=== PATIENT | male | born 1965 | race Caucasian/White ===

== ENCOUNTER 2017-05-27 16:36 | Inpatient (IN) ==
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
[2017-05-27 17:41] LABS: Bilirubin,Urine Negative (Negative); Blood,Urine Negative (Negative); Clarity,Urine Clear (Clear); Color,Urine Yellow (Yellow); Glucose,Urine (UA) Normal (Normal); Ketones,Urine Negative (Negative); Leukocyte Esterase,Urine Negative (Negative); Nitrite,Urine Negative (Negative); PH,Urine 6.5 pH Units (5.0-8.0); Protein,Urine Negative (Neg-Trace); Specific Gravity,Urine 1.015 (1.010-1.025); Urobilinogen,Urine Normal (Normal)
[2017-05-27 17:45] LABS: Basophils % 0.2 %; Eosinophils # 0.1 K/mcL (0.0-0.6); Eosinophils % 0.5 %; Hematocrit 42.6 % (37.5-50.1); Hemoglobin 13.9 g/dL (12.9-16.9); Immature Granulocytes % 0.2 % (0-4); Lymphocytes # 1.4 K/mcL (0.6-4.6); Lymphocytes % 14.7 %; Mean Corpuscular HGB Conc 32.6 g/dL (31.6-35.5); Mean Corpuscular Hemoglobin 27.8 pg (28.0-33.3); Mean Corpuscular Volume 85.2 fL (83.0-100.0); Mean Platelet Volume 9.2 fL (9.4-12.4); Monocytes # 0.5 K/mcL (0.0-1.3); Monocytes % 5.1 %; Neutrophils # 7.5 K/mcL (1.6-8.9); Platelet Count 431 K/mcL (140-400); Red Cell Distribution Width 13.2 % (11.5-14.5); Segmented Neutrophils % 79.3 %
[2017-05-27 17:48] LABS: Amphetamine Screen,Urine Negative ng/mL (Cutoff=1000); Barbiturate Screen,Urine Negative ng/mL (Cutoff=200); Benzodiazepines Screen,Urine Positive ng/mL (Cutoff=200); Cannabinoid Screen,Urine Negative ng/mL (Cutoff = 50); Cocaine Screen,Urine Positive ng/mL (Cutoff= 300); Opiate Screen,Urine Negative ng/mL (Cutoff=300); Phencyclidine Screen,Urine Negative ng/mL (Cutoff=25)
[2017-05-27 18:01] LABS: Acetaminophen < 1.0 mcg/mL (10-30); Alanine Aminotransferase 9 Units/L (0-55); Albumin/Globulin Ratio 1.2 (1.1-2.2); Alkaline Phosphatase 111 Units/L (38-126); Aspartate Amino Transferase 18 Units/L (5-34); BUN/Creatinine Ratio 11 (6-26); Bilirubin,Total 0.6 mg/dL (0.2-1.2); Blood Urea Nitrogen 10 mg/dL (8-26); Calcium 9.7 mg/dL (8.6-10.8); Carbon Dioxide 25 mEq/L (19-29); Chloride 109 mEq/L (98-109); Ethanol < 10 mg/dL (0-10); Globulin 3.3 g/dL (2.4-3.5); Glucose 105 mg/dL (70-99); Osmolality,Calculated 295 (280-300); Potassium 4.1 mEq/L (3.5-4.5); Salicylate < 5.0 mg/dL (15-30); Sodium 143 mEq/L (136-145); Total Protein 7.3 g/dL (6.0-8.3); eGFR For African Americans > 60 (> 60); eGFR For Non-African Americans > 60 (> 60)
--- NOTE | 2017-05-27 20:55 | Emergency Department Note ---
START Narrative - START START: [facility] has accepted patient to his service. He has been pink slipped. last time he did cocaine was 3 days ago, and clonopin was filled yesterday and he did not take any extra doses.
[2017-05-27] MEDS ORDERED: hydrOXYzine pamoate 25 MG CAPSULE PO PRN ×2 (21:03→21:07)
[2017-05-27] MEDS ORDERED: *HR* LORazepam 1 MG TABLET PO PRN (21:03)
[2017-05-27] MEDS ORDERED: Mag Hydrox/Al Hydrox/Simeth 30 ML UDC PO PRN (21:03)
[2017-05-27] MEDS ORDERED: MOM Conc 10 ML UD.LIQ PO PRN (21:03)
[2017-05-27] MEDS ORDERED: *HR* LORazepam 2 MG/ML VIAL IM PRN (21:03)
[2017-05-27] MEDS ORDERED: Haloperidol Lactate 5 MG/ML VIAL IM PRN (21:03)
[2017-05-27] MEDS: Haloperidol Lactate 5 MG/ML VIAL IM ONE ×2 (21:23→22:19)
[2017-05-27] MEDS: clonazePAM 1 MG TABLET PO SCH (23:16)
[2017-05-27] MEDS: traZODone 50 MG TABLET PO SCH (23:17)
[2017-05-28] MEDS: Acetaminophen 325 MG TABLET PO PRN ×2 (06:25→21:29)
[2017-05-28] MEDS: clonazePAM 1 MG TABLET PO SCH ×3 (09:34→20:39)
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
[2017-05-28] MEDS ORDERED: Baclofen 10 MG TABLET PO PRN (11:22)
[2017-05-28] MEDS: Gabapentin 100 MG CAPSULE PO SCH ×2 (15:36→20:39)
[2017-05-28] MEDS: traZODone 50 MG TABLET PO SCH (20:38)
[2017-05-28] MEDS: traZODone 50 MG TABLET PO PRN (21:30)
[2017-05-29] MEDS: Gabapentin 100 MG CAPSULE PO SCH ×3 (08:31→20:25)
[2017-05-29] MEDS: clonazePAM 1 MG TABLET PO SCH ×3 (08:31→20:25)
--- NOTE | 2017-05-29 10:18 | Psychiatry Progress Note ---
Date of Encounter: 05/29/17 Time of Encounter: 10:00 Subjective Interval history: Patient seen today , case d/w treatment team . he is complaining about unit cold, did not sleep , mattress not good , food is not good. He is very restless, pacing and anxious, I just want to go home. i do not think this will help me , especially my feet hurting so bad , denies suicidal ideation but is still depress, anxious , sleep not good and medications dose increased. denies side effects. Review of Systems Psychiatric: Reports: depression, anxiety, suicidal ideation, difficulty concentrating, hopelessness, irritability, mood swings Objective: Exam Patient orientation: Yes Person, Yes Time, Yes Place Level of alertness: Alert Patient appearance: Appropriate Behavior: anxious Psychomotor activity: Normal Eye contact: Minimal Contact Mood description: Depressed, Anxious, Irritable Affect description: congruent with mood Speech pattern: Coherent Speech volume: Normal Thought process: Intact Thought content: Yes Guilt Judgment: Limited Insight: Partial Results - Vital Signs Vital Signs: Temp Pulse Resp BP Pulse Ox 98.2 F 69 18 128/79 98 05/29/17 09:00 05/29/17 09:00 05/29/17 09:00 05/29/17 09:00 05/27/17 16:41 Assessment and Plan (1) Suicidal ideation Current visit: Yes Status: Acute Risks, benefits, side effects, alternatives discussed w/pt: Yes Patient agreeable to treatment: Yes (2) Major depression, recurrent Current visit: Yes Status: Acute Risks, benefits, side effects, alternatives discussed w/pt: Yes Patient agreeable to treatment: Yes Qualifiers: Active/Remission status: currently active Major depression episode severity : severe Psychotic features: without psychotic features Qualified Code(s): F33.2 - Major depressive disorder, recurrent severe without psychotic features (3) Opiate dependence Current visit: Yes Status: Chronic Risks, benefits, side effects, alternatives discussed w/pt: Yes Patient agreeable to treatment: Yes Qualifiers: Substance use status: uncomplicated Qualified Code(s): F11.20 - Opioid dependence, uncomplicated (4) Cocaine abuse Current visit: Yes Status: Chronic Risks, benefits, side effects, alternatives discussed w/pt: Yes Patient agreeable to treatment: Yes Consult Discharge Plan - Plan Referrals: Billy Mayo [Outside] - 06/01/17 11:00 am (The above appointment is with Tao Gomez for outpatient mental health and substance abuse counseling services.) Drew Vinson, PAC [Physician Tungsten Tender] - 06/01/17 10:00 am (The above appointment is with Drew Vinson for primary healthcare, medication management, and initiation of Vivitrol treatment process.)
[2017-05-29] MEDS: Acetaminophen 325 MG TABLET PO PRN (15:18)
[2017-05-29] MEDS: traZODone 50 MG TABLET PO PRN (20:26)
[2017-05-29] MEDS: traZODone 50 MG TABLET PO SCH (20:29)
[2017-05-30] MEDS: Acetaminophen 325 MG TABLET PO PRN (02:32)
[2017-05-30] MEDS: Gabapentin 100 MG CAPSULE PO SCH (08:47)
[2017-05-30] MEDS: clonazePAM 1 MG TABLET PO SCH (08:47)
[2017-05-30 09:52] VITALS: BP 116/80
--- NOTE | 2017-05-30 11:24 | Discharge Summary ---
Date of Encounter: 05/30/17 Time of Encounter: 11:00 Diagnosis - Discharge Diagnosis (1) Suicidal ideation Status: Resolved Comments: Patient not in danger to self/other , has support from family. (2) Major depression, recurrent Status: Acute Comments: patient stable and has shown improvement , not in imenent danger to self/others. Qualifiers: Active/Remission status: currently active Major depression episode severity : severe Psychotic features: without psychotic features Qualified Code(s): F33.2 - Major depressive disorder, recurrent severe without psychotic features (3) Opiate dependence Status: Chronic Comments: Patient has appointment with [facility] clinic. Qualifiers: Substance use status: uncomplicated Qualified Code(s): F11.20 - Opioid dependence, uncomplicated (4) Cocaine abuse Status: Chronic Medications - Discharge Medications Prescriptions: DULoxetine [Cymbalta] 30 mg PO DAILY #30 capsule. Gabapentin [Neurontin] 200 mg PO TID #90 capsule Lansoprazole [Prevacid] 30 mg PO DAILY 05/27/17 [History] Naltrexone Microspheres [Vivitrol] 380 mg IM QMONTH 05/27/17 [History] clonazePAM [Klonopin] 1 mg PO TID 05/27/17 [History] traZODone [TraZODone] 50 mg PO HS 05/27/17 [History] DULoxetine [Cymbalta] 30 mg PO DAILY #30 capsule. 05/30/17 [Rx] Gabapentin [Neurontin] 200 mg PO TID #90 capsule 05/30/17 [Rx] 3 Allergy/AdvReac Type Severity Reaction Status Date / Time ciprofloxacin [From Cipro] Allergy Hives Verified 05/27/17 16:39 Penicillins [PCN] Allergy Nausea Verified 05/27/17 16:39 Provider Date of admission: 05/27/17 20:53 Primary care physician: PCP NONE Assessment and Plan - Patient/Caregiver Discharge Instructions Activity: resume usual activities as tolerated Diet: regular diet - Follow up Plan Follow up with: Billy Mayo [Outside] - 06/01/17 11:00 am (The above appointment is with Tao Gomez for outpatient mental health and substance abuse counseling services.) Drew Vinson PAC [Physician Landscape Horticulture Instructor] - 06/01/17 10:00 am (The above appointment is with Drew Vinson for primary healthcare, medication management, and initiation of Vivitrol treatment process.) Functional capacity at discharge: independent ambulation Overall status at discharge: patient is back to baseline Disposition: Home, Self-Care Hospital Course Hospital course: Mr. Alvarez is a 52 year old male who was admitted from ED after he called 911 for suicidal thoughts and had gun in his hand, states he did not wanted to kill self but was upset with recent break up with friend with whom before starting any relationship she did not responded to his calls and blocked him from face book. he lives by himself has supportive family, has chronic back pain and has h/ o abused opiates and now will be followed at [facility] clinic on 06/01. He has been treated in past with medications for depression and anxiety , during course of hospitalization he showed improvement in moods, no suicidal ideation/no homicidal ideation. He will be discharged with his family with follow up appointment. Education given about his substance use and to go to counselling, patient acknowledged. Time spent discussing smoking cessation with patient: 3 to 10 minutes Does patient wish to continue nicotine replacement upon disc: No (states i do not want any patch and i smoke , education given but does not w) - Time Spent with Patient Total time spent providing and/or coordinating discharge services: Less than 30 minutes Quality - Multiple Antipsychotics Patient discharged on 2 or more antipsychotic medications: No Procedures - Procedures Procedures: Medication Management, Crisis Stabilization, Supportive Therapy, Group Therapy, Psychoeducational Therapy Mental Status Exam - Mental Status Exam Patient orientation: Yes Person, Yes Time, Yes Place Level of alertness: Alert Patient appearance: Appropriate Behavior: calm, cooperative Psychomotor activity: Normal Eye contact: Maintains Eye Contact Mood description: Anxious Affect description: congruent with mood Speech pattern: Coherent Speech Volume: Normal Thought process: Intact Thought Content: Yes Intact Judgment: Good Insight: Partial
[2017-05-30] MEDS ORDERED: FLUARIX QUAD 2017-18 36MOS UP/PF 0.5 ML SYRINGE IM ONE (11:51)
== END 2017-05-30 12:20 | disposition home or self-care (01) | DRG 751 ==
LOC: EMEROO 16:36 → 1ANU 20:53
PROVIDERS: ADMIT Psychiatry & Neurology Psychiatry; ATTEND Psychiatry & Neurology Psychiatry

== ENCOUNTER 2018-02-26 17:37 | Inpatient (IN) ==
[2018-02-26 18:17] LABS: Basophils % 0.2 %; Eosinophils # 0.2 K/mcL (0.0-0.6); Eosinophils % 1.6 %; Hematocrit 44.6 % (37.5-50.1); Hemoglobin 15.4 g/dL (12.9-16.9); Immature Granulocytes % 0.2 % (0-4); Lymphocytes # 1.6 K/mcL (0.6-4.6); Lymphocytes % 14.7 %; Mean Corpuscular HGB Conc 34.5 g/dL (31.6-35.5); Mean Corpuscular Hemoglobin 29.7 pg (28.0-33.3); Mean Corpuscular Volume 85.9 fL (83.0-100.0); Mean Platelet Volume 9.6 fL (9.4-12.4); Monocytes # 0.5 K/mcL (0.0-1.3); Monocytes % 4.4 %; Neutrophils # 8.7 K/mcL (1.6-8.9); Platelet Count 336 K/mcL (140-400); Red Blood Count 5.19 M/mcL (4.19-5.50); Red Cell Distribution Width 12.8 % (11.5-14.5); Segmented Neutrophils % 78.9 %
[2018-02-26 18:31] LABS: Bilirubin,Urine Negative (Negative); Blood,Urine Negative (Negative); Clarity,Urine Clear (Clear); Color,Urine Yellow (Yellow); Glucose,Urine (UA) Normal (Normal); Ketones,Urine Negative (Negative); Leukocyte Esterase,Urine Negative (Negative); Nitrite,Urine Negative (Negative); PH,Urine 5.5 pH Units (5.0-8.0); Protein,Urine Negative (Neg-Trace); Specific Gravity,Urine 1.021 (1.010-1.025); Urobilinogen,Urine Normal (Normal)
[2018-02-26 18:39] LABS: Acetaminophen < 10 mcg/mL (10-20); BUN/Creatinine Ratio 8 (6-26); Blood Urea Nitrogen 8 mg/dL (6-20); Calcium 9.3 mg/dL (8.6-10.3); Carbon Dioxide 25 mEq/L (23-29); Chloride 108 mEq/L (98-107); Ethanol < 10 mg/dL (Less than 10); Glucose 95 mg/dL (70-105); Osmolality,Calculated 288 (280-300); Potassium 3.6 mEq/L (3.5-5.1); Salicylate < 2.5 mg/dL (15.0-30.0); Sodium 140 mEq/L (136-145); eGFR For African Americans > 60 (> 60); eGFR For Non-African Americans > 60 (> 60)
[2018-02-26 18:53] LABS: Amphetamine Screen,Urine Negative ng/mL (Cutoff=1000); Barbiturate Screen,Urine Negative ng/mL (Cutoff=200); Benzodiazepines Screen,Urine Negative ng/mL (Cutoff=200); Cannabinoid Screen,Urine Negative ng/mL (Cutoff = 50); Cocaine Screen,Urine Positive ng/mL (Cutoff= 300); Opiate Screen,Urine Negative ng/mL (Cutoff=300); Phencyclidine Screen,Urine Negative ng/mL (Cutoff=25)
[2018-02-26] MEDS ORDERED: Ibuprofen 600 MG TABLET PO ONE (19:24)
--- NOTE | 2018-02-26 19:25 | Emergency Department Note ---
Disposition Clinical Impression: Suicidal ideation Depression Qualifiers: Depression Type: unspecified Qualified Code(s): F32.9 - Major depressive disorder, single episode, unspecified Disposition: Admitted As Inpatient Condition: Fair Time of Disposition: 22:50 Psych HPI - General Chief Complaint: ED Psychiatric Symptoms Stated Complaint: Multiple complaints Time Seen by Provider: 02/26/18 18:04 Source: patient Mode of arrival: ambulatory Limitations: no limitations Nursing Notes Reviewed: Yes Vital Signs Reviewed: Yes - History of Present Illness HPI Narrative: 52-year-old male history of bipolar and anxiety presents emergency department with chronic pain and suicidal ideation. States for the last several years he has been dealing with pain to his back his stomach in his right ankle. He is to take ibuprofen but was told due to his gastritis he should stop. He states recently his doctor told him he does not have gastritis. He has been taking Prevacid for the pain. He is to the point where his pain is uncontrolled and he just does not want to live this way. He does not have a definitive plan for suicide. But he does have a history of suicide attempt. No access to a gun at home. He has been taken his clonazepam for the past year after discontinuing his Xanax. He sees a counselor over the past year but has missed several appointments recently. Denies any hallucinations. Admits to cocaine use. Denies any alcohol or toxic ingestion's. Denies any other complaints at this time. Denies loss of bowel or bladder control. Denies any new injury or trauma. Patient has required psychiatric admission in the past. Pt complaint: suicidal ideation, feels depressed - Related Data Home Medications Medication Instructions Recorded Confirmed Lansoprazole [Prevacid] 30 mg PO DAILY 05/27/17 05/27/17 Naltrexone Microspheres [Vivitrol] 380 mg IM QMONTH 05/27/17 05/27/17 clonazePAM [Klonopin] 1 mg PO TID 05/27/17 05/27/17 traZODone [TraZODone] 50 mg PO HS 05/27/17 05/27/17 Previous Rx's Medication Instructions Recorded DULoxetine [Cymbalta] 30 mg PO DAILY #30 capsule. 05/30/17 Gabapentin [Neurontin] 200 mg PO TID #90 capsule 05/30/17 Allergies Allergy/AdvReac Type Severity Reaction Status Date / Time ciprofloxacin [From Cipro] Allergy Hives Verified 05/27/17 16:39 Penicillins [PCN] Allergy Nausea Verified 05/27/17 16:39 All systems ED: reviewed and negative except as stated. Review of Systems: As Per HPI Constitutional: Denies: fever, chills Cardiovascular: Denies: chest pain Respiratory: Denies: dyspnea Gastrointestinal: Reports: abdominal pain, constipation. Denies: nausea, vomiting Musculoskeletal: Reports: back pain Neurological: Denies: headache, weakness, numbness Past Medical History - Past Medical History Attestation: Yes The following information was validated with the patient. Source: patient Medical history: Reports: no medical history, arthritis, GERD Surgical history: Reports: non-contributory Psychiatric history: Reports: anxiety, depression - Social History Smoking Status: Current every day smoker Smokeless Tobacco Status: No Alcohol use: Reports: rarely Drug use: Reports: cocaine, opiates, methamphetamine, IV Drug Use, prescription drug abuse Physical Exam - General Limitations: no limitations General appearance: alert, in no apparent distress - Head Head exam: atraumatic, normocephalic, normal inspection - Eye Eye exam: Present: normal appearance, PERRL, EOMI - ENT ENT exam: normal exam, normal oropharynx, mucous membranes moist - Neck Neck exam: Present: normal inspection, full ROM, trachea midline - Chest Chest inspection: Present: normal inspection, symmetric chest wall rise. Absent : tenderness - Respiratory Respiratory exam: Present: normal lung sounds bilaterally. Absent: respiratory distress - Cardiovascular Cardiovascular exam: Present: regular rate, normal rhythm, normal heart sounds. Absent: systolic murmur, diastolic murmur - Abdominal Exam Abdominal exam: Present: soft, tenderness, normal bowel sounds. Absent: Non- Tender, distention, guarding, rebound, rigidity Abdominal tenderness: Present: epigastrium - Extremities Exam Extremities exam: Present: normal inspection, full ROM, normal capillary refill. Absent: tenderness, pedal edema - Back Exam Back exam: Present: normal inspection, full ROM. Absent: tenderness, vertebral tenderness - Neurological Exam Neurological exam: Present: alert, oriented X3, normal gait - Expanded Neurological Exam Patient oriented to: Present: person, place, time - Psychiatric Psychiatric exam: Present: normal affect, normal mood, depressed, suicidal ideation - Skin Skin exam: Present: warm, dry, intact, normal color. Absent: rash, cyanosis, diaphoresis Course Course Narrative: Patient presents for concern of suicidal ideation as well as chronic pain. He reports pain to his back, right ankle, and stomach area has been ongoing for several years and has not changed. He has been tolerating a normal diet. Due to this pain it has brought him to the point where he states he "does not want to live like this." He does not have a definitive plan. He will be medically cleared and evaluated by psychiatry. On examination his abdomen is soft nontender nondistended. Neurologically is intact without any significant back pain. He does admit to being constipated and requests for an enema. - Reevaluation(s) Reevaluation #1: Urine was positive for cocaine. He is medically cleared. He will be evaluated by [facility]. Reevaluation #2: [facility] psychiatry has recommended admission for suicidal ideation and depression. Vital Signs Temperature 98.8 F 02/26/18 17:40 Pulse Rate 74 02/26/18 17:40 Respiratory Rate 16 02/26/18 17:40 Blood Pressure 133/87 02/26/18 17:40 O2 Sat by Pulse Oximetry 96 02/26/18 17:40 Temperature 98.8 F 02/26/18 17:40 Pulse Rate 74 02/26/18 17:40 Respiratory Rate 16 02/26/18 22:45 Blood Pressure 123/82 02/26/18 22:45 O2 Sat by Pulse Oximetry 96 02/26/18 17:40 Oxygen Delivery Oxygen Delivery Room Air Psych - MDM Narrative Medical decision making narrative: Patient was discussed with my attending physician who agrees with ED management and final disposition. They independently evaluated the patient. Please refer to their attestation to this encounter for additional information. This note was generated by [employer] voice recognition software and as a result grammatical or spelling errors may occur using this program. - Lab Data Lab results reviewed: Yes I reviewed the patient's lab results. Result diagrams: 02/26/18 17:59 02/26/18 17:59 Lab Results 02/26/18 02/26/18 02/26/18 Range/Units 17:59 17:59 18:21 WBC 11.0 (4.3-11.1) K/mcL RBC 5.19 (4.19-5.50) M/mcL Hgb 15.4 (12.9-16.9) g/dL Hct 44.6 (37.5-50.1) % MCV 85.9 (83.0-100.0) fL MCH 29.7 (28.0-33.3) pg MCHC 34.5 (31.6-35.5) g/dL RDW 12.8 (11.5-14.5) % Plt Count 336 (140-400) K/mcL MPV 9.6 (9.4-12.4) fL Immature Gran % 0.2 (0-4) % Seg Neutrophils % 78.9 % Lymphocytes % 14.7 % Monocytes % 4.4 % Eosinophils % 1.6 % Basophils % 0.2 % Neutrophils # 8.7 (1.6-8.9) K/mcL Lymphocytes # 1.6 (0.6-4.6) K/mcL Monocytes # 0.5 (0.0-1.3) K/mcL Eosinophils # 0.2 (0.0-0.6) K/mcL Basophils # 0.0 (0.0-0.2) K/mcL Sodium 140 (136-145) mEq/L Potassium 3.6 (3.5-5.1) mEq/L Chloride 108 H (98-107) mEq/L Carbon Dioxide 25 (23-29) mEq/L BUN 8 (6-20) mg/dL Creatinine 1.06 (0.70-1.30) mg/dL Est GFR ( Amer) > 60 (> 60) Est GFR (Non-Af Amer) > 60 (> 60) BUN/Creatinine Ratio 8 (6-26) Glucose 95 (70-105) mg/dL Calculated Osmolality 288 (280-300) Calcium 9.3 (8.6-10.3) mg/dL Urine Color Yellow (Yellow) Urine Clarity Clear (Clear) Urine pH 5.5 (5.0-8.0) pH Units Ur Specific [place] 1.021 (1.010-1.025) Urine Protein Negative (Neg-Trace) mg/dL Urine Glucose (UA) Normal (Normal) mg/dL Urine Ketones Negative (Negative) mg/dL Urine Blood Negative (Negative) Urine Nitrite Negative (Negative) Urine Bilirubin Negative (Negative) Urine Urobilinogen Normal (Normal) mg/dL Ur Leukocyte Esterase Negative (Negative) Salicylates < 2.5 L (15.0-30.0) mg/dL Urine Opiates Screen (Tpullb=758) ng/mL Acetaminophen < 10 L (10-20) mcg/mL Ur Barbiturates Screen (Uiqvik=493) ng/mL Ur Phencyclidine Scrn (Cutoff=25) ng/mL Ur Amphetamines Screen (Snihej=1716) ng/mL U Benzodiazepines Scrn (Dqauuu=075) ng/mL Urine Cocaine Screen (Cutoff= 300) ng/mL U Marijuana (THC) Screen (Cutoff = 50) ng/mL Ur Drug Screen Interp Ethyl Alcohol < 10 (Less than 10) mg/dL 02/26/18 Range/Units 18:21 WBC (4.3-11.1) K/mcL RBC (4.19-5.50) M/mcL Hgb (12.9-16.9) g/dL Hct (37.5-50.1) % MCV (83.0-100.0) fL MCH (28.0-33.3) pg MCHC (31.6-35.5) g/dL RDW (11.5-14.5) % Plt Count (140-400) K/mcL MPV (9.4-12.4) fL Immature Gran % (0-4) % Seg Neutrophils % % Lymphocytes % % Monocytes % % Eosinophils % % Basophils % % Neutrophils # (1.6-8.9) K/mcL Lymphocytes # (0.6-4.6) K/mcL Monocytes # (0.0-1.3) K/mcL Eosinophils # (0.0-0.6) K/mcL Basophils # (0.0-0.2) K/mcL Sodium (136-145) mEq/L Potassium (3.5-5.1) mEq/L Chloride (98-107) mEq/L Carbon Dioxide (23-29) mEq/L BUN (6-20) mg/dL Creatinine (0.70-1.30) mg/dL Est GFR ( Amer) (> 60) Est GFR (Non-Af Amer) (> 60) BUN/Creatinine Ratio (6-26) Glucose (70-105) mg/dL Calculated Osmolality (280-300) Calcium (8.6-10.3) mg/dL Urine Color (Yellow) Urine Clarity (Clear) Urine pH (5.0-8.0) pH Units Ur Specific [place] (1.010-1.025) Urine Protein (Neg-Trace) mg/dL Urine Glucose (UA) (Normal) mg/dL Urine Ketones (Negative) mg/dL Urine Blood (Negative) Urine Nitrite (Negative) Urine Bilirubin (Negative) Urine Urobilinogen (Normal) mg/dL Ur Leukocyte Esterase (Negative) Salicylates (15.0-30.0) mg/dL Urine Opiates Screen Negative (Krokjf=438) ng/mL Acetaminophen (10-20) mcg/mL Ur Barbiturates Screen Negative (Tsqapk=553) ng/mL Ur Phencyclidine Scrn Negative (Cutoff=25) ng/mL Ur Amphetamines Screen Negative (Jdjfxv=5250) ng/mL U Benzodiazepines Scrn Negative (Odpsch=050) ng/mL Urine Cocaine Screen Positive H (Cutoff= 300) ng/mL U Marijuana (THC) Screen Negative (Cutoff = 50) ng/mL Ur Drug Screen Interp See Below Ethyl Alcohol (Less than 10) mg/dL Psychiatric Medical Clearance - Medical Clearance Checklist Medical History: No Social History Section defined Current Vitals: Last Vital Signs Temp 98.8 F 02/26/18 17:40 Pulse 74 02/26/18 17:40 Resp 16 02/26/18 22:45 BP 123/82 02/26/18 22:45 Pulse Ox 96 02/26/18 17:40 Psychiatric Lab Panel: Drug Levels and Toxicity 02/26/18 02/26/18 17:59 18:21 Urine Opiates Screen Negative Acetaminophen < 10 L Ur Barbiturates Screen Negative Ur Phencyclidine Scrn Negative Ur Amphetamines Screen Negative U Benzodiazepines Scrn Negative Urine Cocaine Screen Positive H U Marijuana (THC) Screen Negative Ethyl Alcohol < 10 Abnormal Labs: Abnormal lab results Chloride 108 mEq/L (98-107) H 02/26/18 17:59 Salicylates < 2.5 mg/dL (15.0-30.0) L 02/26/18 17:59 Acetaminophen < 10 mcg/mL (10-20) L 02/26/18 17:59 Urine Cocaine Screen Positive ng/mL (Cutoff= 300) H 02/26/18 18:21 Statement of Medical Clearance: I have evaluated the patient, reviewed diagnostic information, and certify that the patient's medical condition is sufficiently stable that transfer to the psychiatric unit does not pose a significant risk of deterioration.
[2018-02-26] MEDS ORDERED: Bisacodyl 10 MG RECTAL SUPPOSITORY RC ONE (20:58)
--- NOTE | 2018-02-26 21:15 | Emergency Department Note ---
Disposition Clinical Impression: Suicidal ideation Depression Qualifiers: Depression Type: unspecified Qualified Code(s): F32.9 - Major depressive disorder, single episode, unspecified Disposition: Admitted As Inpatient Condition: Fair Referrals: NONE,PCP [Primary Care Provider] - Forms: ED Satisfaction Letter General Adult HPI - General Chief complaint: ED Psychiatric Symptoms Stated complaint: Multiple complaints Time Seen by Provider: 02/26/18 18:04 Source: patient Mode of arrival: ambulatory Limitations: no limitations Nursing Notes Reviewed: Yes Vital Signs Reviewed: Yes - History of Present Illness Pain Scale: 10 - Related Data Home Medications Medication Instructions Recorded Confirmed Lansoprazole [Prevacid] 30 mg PO DAILY 05/27/17 05/27/17 Naltrexone Microspheres [Vivitrol] 380 mg IM QMONTH 05/27/17 05/27/17 clonazePAM [Klonopin] 1 mg PO TID 05/27/17 05/27/17 traZODone [TraZODone] 50 mg PO HS 05/27/17 05/27/17 Previous Rx's Medication Instructions Recorded DULoxetine [Cymbalta] 30 mg PO DAILY #30 capsule. 05/30/17 Gabapentin [Neurontin] 200 mg PO TID #90 capsule 05/30/17 Allergies Allergy/AdvReac Type Severity Reaction Status Date / Time ciprofloxacin [From Cipro] Allergy Hives Verified 05/27/17 16:39 Penicillins [PCN] Allergy Nausea Verified 05/27/17 16:39 Constitutional: Denies: fever, chills Cardiovascular: Denies: chest pain Respiratory: Denies: dyspnea Gastrointestinal: Reports: abdominal pain. Denies: nausea, vomiting Musculoskeletal: Reports: back pain Neurological: Denies: headache, weakness, numbness Past Medical History - Past Medical History Medical history: Reports: no medical history, arthritis, GERD Surgical history: Reports: non-contributory Psychiatric history: Reports: anxiety, depression - Social History Smoking Status: Current every day smoker Smokeless Tobacco Status: No Alcohol use: Reports: rarely Drug use: Reports: cocaine, opiates, methamphetamine, IV Drug Use, prescription drug abuse Physical Exam - General Limitations: no limitations General appearance: alert, in no apparent distress Course Vital Signs Temperature 98.8 F 02/26/18 17:40 Pulse Rate 74 02/26/18 17:40 Respiratory Rate 16 02/26/18 17:40 Blood Pressure 133/87 02/26/18 17:40 O2 Sat by Pulse Oximetry 96 02/26/18 17:40 Temperature 98.8 F 02/26/18 17:40 Pulse Rate 74 02/26/18 17:40 Respiratory Rate 16 02/26/18 17:40 Blood Pressure 133/87 02/26/18 17:40 O2 Sat by Pulse Oximetry 96 02/26/18 17:40 Oxygen Delivery Oxygen Delivery Room Air Medical Decision Making - Lab Data Result diagrams: 02/26/18 17:59 02/26/18 17:59 Lab Results 02/26/18 02/26/18 02/26/18 Range/Units 17:59 17:59 18:21 WBC 11.0 (4.3-11.1) K/mcL RBC 5.19 (4.19-5.50) M/mcL Hgb 15.4 (12.9-16.9) g/dL Hct 44.6 (37.5-50.1) % MCV 85.9 (83.0-100.0) fL MCH 29.7 (28.0-33.3) pg MCHC 34.5 (31.6-35.5) g/dL RDW 12.8 (11.5-14.5) % Plt Count 336 (140-400) K/mcL MPV 9.6 (9.4-12.4) fL Immature Gran % 0.2 (0-4) % Seg Neutrophils % 78.9 % Lymphocytes % 14.7 % Monocytes % 4.4 % Eosinophils % 1.6 % Basophils % 0.2 % Neutrophils # 8.7 (1.6-8.9) K/mcL Lymphocytes # 1.6 (0.6-4.6) K/mcL Monocytes # 0.5 (0.0-1.3) K/mcL Eosinophils # 0.2 (0.0-0.6) K/mcL Basophils # 0.0 (0.0-0.2) K/mcL Sodium 140 (136-145) mEq/L Potassium 3.6 (3.5-5.1) mEq/L Chloride 108 H (98-107) mEq/L Carbon Dioxide 25 (23-29) mEq/L BUN 8 (6-20) mg/dL Creatinine 1.06 (0.70-1.30) mg/dL Est GFR ( Amer) > 60 (> 60) Est GFR (Non-Af Amer) > 60 (> 60) BUN/Creatinine Ratio 8 (6-26) Glucose 95 (70-105) mg/dL Calculated Osmolality 288 (280-300) Calcium 9.3 (8.6-10.3) mg/dL Urine Color Yellow (Yellow) Urine Clarity Clear (Clear) Urine pH 5.5 (5.0-8.0) pH Units Ur Specific [place] 1.021 (1.010-1.025) Urine Protein Negative (Neg-Trace) mg/dL Urine Glucose (UA) Normal (Normal) mg/dL Urine Ketones Negative (Negative) mg/dL Urine Blood Negative (Negative) Urine Nitrite Negative (Negative) Urine Bilirubin Negative (Negative) Urine Urobilinogen Normal (Normal) mg/dL Ur Leukocyte Esterase Negative (Negative) Salicylates < 2.5 L (15.0-30.0) mg/dL Urine Opiates Screen (Ivukqm=469) ng/mL Acetaminophen < 10 L (10-20) mcg/mL Ur Barbiturates Screen (Zfzues=511) ng/mL Ur Phencyclidine Scrn (Cutoff=25) ng/mL Ur Amphetamines Screen (Igwesp=3488) ng/mL U Benzodiazepines Scrn (Dhtbtu=266) ng/mL Urine Cocaine Screen (Cutoff= 300) ng/mL U Marijuana (THC) Screen (Cutoff = 50) ng/mL Ur Drug Screen Interp Ethyl Alcohol < 10 (Less than 10) mg/dL 02/26/18 Range/Units 18:21 WBC (4.3-11.1) K/mcL RBC (4.19-5.50) M/mcL Hgb (12.9-16.9) g/dL Hct (37.5-50.1) % MCV (83.0-100.0) fL MCH (28.0-33.3) pg MCHC (31.6-35.5) g/dL RDW (11.5-14.5) % Plt Count (140-400) K/mcL MPV (9.4-12.4) fL Immature Gran % (0-4) % Seg Neutrophils % % Lymphocytes % % Monocytes % % Eosinophils % % Basophils % % Neutrophils # (1.6-8.9) K/mcL Lymphocytes # (0.6-4.6) K/mcL Monocytes # (0.0-1.3) K/mcL Eosinophils # (0.0-0.6) K/mcL Basophils # (0.0-0.2) K/mcL Sodium (136-145) mEq/L Potassium (3.5-5.1) mEq/L Chloride (98-107) mEq/L Carbon Dioxide (23-29) mEq/L BUN (6-20) mg/dL Creatinine (0.70-1.30) mg/dL Est GFR ( Amer) (> 60) Est GFR (Non-Af Amer) (> 60) BUN/Creatinine Ratio (6-26) Glucose (70-105) mg/dL Calculated Osmolality (280-300) Calcium (8.6-10.3) mg/dL Urine Color (Yellow) Urine Clarity (Clear) Urine pH (5.0-8.0) pH Units Ur Specific [place] (1.010-1.025) Urine Protein (Neg-Trace) mg/dL Urine Glucose (UA) (Normal) mg/dL Urine Ketones (Negative) mg/dL Urine Blood (Negative) Urine Nitrite (Negative) Urine Bilirubin (Negative) Urine Urobilinogen (Normal) mg/dL Ur Leukocyte Esterase (Negative) Salicylates (15.0-30.0) mg/dL Urine Opiates Screen Negative (Lnslfv=112) ng/mL Acetaminophen (10-20) mcg/mL Ur Barbiturates Screen Negative (Cbslsh=558) ng/mL Ur Phencyclidine Scrn Negative (Cutoff=25) ng/mL Ur Amphetamines Screen Negative (Hisufy=1253) ng/mL U Benzodiazepines Scrn Negative (Xwuple=002) ng/mL Urine Cocaine Screen Positive H (Cutoff= 300) ng/mL U Marijuana (THC) Screen Negative (Cutoff = 50) ng/mL Ur Drug Screen Interp See Below Ethyl Alcohol (Less than 10) mg/dL Attestation Statement - Attestation Attestation: I, Dar Suazo, examined this patient and my medical decision-making was reviewed with the CHILD NUTRITION ASSISTANT/PA/Advanced Practice Nurse/Resident Physician. I agree with the documented findings, disposition and treatment plan as described except to the extent set forth below. 52-year-old male presents emergency Department with multiple complaints of suicidal ideation. Patient states he is depressed and feels helpless and hopeless because he is unable to obtain a job or provide for his family. Patient states that he has had multiple thoughts that he would be better off however he does not have an active plan for suicide. Patient denies recent attempts at ending his life. He denies auditory or visual hallucinations. Patient also has chronic back pain and chronic left upper quadrant abdominal pain which she states has been present over the past 5 years. Patient states his main concern for evaluation today was the suicidal ideation however he also states that he has not had a bowel movement in the past 4 days. Patient does not state that his abdomen is significantly distended. He states that this occurs frequently. He is requesting a stool softener for further care. Patient will be medically cleared and evaluated by 1A Patient evaluated by behavioral health who recommended he be admitted to the hospital for further care and evaluation.
[2018-02-27] MEDS ORDERED: Haloperidol Lactate 5 MG/ML VIAL IM PRN (00:21)
[2018-02-27] MEDS ORDERED: *HR* LORazepam 1 MG TABLET PO PRN (00:21)
[2018-02-27] MEDS ORDERED: traZODone 50 MG TABLET PO PRN (00:21)
[2018-02-27] MEDS ORDERED: Mag Hydrox/Al Hydrox/Simeth 30 ML UDC PO PRN (00:21)
[2018-02-27] MEDS ORDERED: *HR* LORazepam 2 MG/ML VIAL IM PRN (00:21)
[2018-02-27] MEDS ORDERED: hydrOXYzine pamoate 25 MG CAPSULE PO ONE (00:53)
[2018-02-27] MEDS: hydrOXYzine pamoate 25 MG CAPSULE PO PRN ×3 (01:05→15:55)
[2018-02-27] MEDS: Nicotine 21 MG PATCH.TD24 TD SCH (08:42)
[2018-02-27] MEDS: Acetaminophen 325 MG TABLET PO PRN ×2 (10:50→19:00)
--- NOTE | 2018-02-27 11:00 | Psychiatry History & Physical ---
Date of Encounter: 02/27/18 Time of Encounter: 10:50 History of Present Illness Patient Stated Chief Complaint: suicidal ideation Medicare Admission Attestation: For traditional Medicare patients the provided hospital inpatient services are reasonable and necessary and in the case of services not specified as inpatient -only under 42 CFR 419.22 (n), that they are appropriately provided as inpatient services in accordance 42 CFR 412.3. For Critical Access Hospital the patient may reasonably be expected to be discharged or transferred to a hospital within 96 hours after admission to the Critical Access Hospital. Admitted From: Home Plans for Post Hospital Care: Home History of Present Illness: Mr. Alvarez is a 52 year old male who was admitted secondary to depression and poor functioning at home. Today client denies any intent or plan to end his life but does admit to not wanting to live anymore. States he can't take care of himself due to chronic pain. No income. Can't afford food or to care for seven cats on his property. Wants disability. Using crack cocaine because he states it helps take the edge off of his pain. Linked with a counselor but PCP prescribes meds. Claims he has not seen a psychiatrist in a long time. Currently takes Effexor XR, Klonopin, and Neurontin. Lives alone but did talk about having a daughter nearby. Will start by increasing Effexor and making a referral to a psychiatrist. Past Med Surg Social Fam HX - Past Medical History Medical history: no medical history, arthritis, GERD - Past Psychiatric History Psychiatric history: Reports: bipolar, depression, previous psychiatric hospitalization Family psychiatric history: Unknown Family History of Suicide: Unknown - Past Surgical History Surgical History: non-contributory - Social History Smoking Status: Current every day smoker Smokeless Tobacco Status: No Alcohol use: rarely Drug use: cocaine, opiates, methamphetamine, IV Drug Use, prescription drug abuse - Family History Father Adopted: No Family Member Ethnicity: Non- Living Status: Still Living Hx Family Cardiac Disorders: Yes (Heart arrythmias) Hx Family Cancer: Yes (Bladder cancer) Medications & Allergies Lansoprazole [Prevacid] 30 mg PO DAILY 05/27/17 [History] clonazePAM [Klonopin] 1 mg PO TID 05/27/17 [History] Docusate Sodium [Dok] 100 mg PO DAILY 02/27/18 [History] Gabapentin [Neurontin] 300 mg PO TID 02/27/18 [History] Venlafaxine XR (24 HR) [Effexor XR] 75 mg PO DAILY 02/27/18 [History] 3 Allergy/AdvReac Type Severity Reaction Status Date / Time ciprofloxacin [From Cipro] Allergy Hives Verified 05/27/17 16:39 Penicillins [PCN] Allergy Nausea Verified 05/27/17 16:39 Review of Systems Constitutional: Reports: weakness Eyes: Denies: eye pain, vision change Ears, Nose, Throat: Denies: ear pain, throat pain, dental pain, hearing loss, congestion Respiratory: Denies: cough, dyspnea, wheezes Gastrointestinal: Reports: abdominal pain, nausea Genitourinary male: Denies: urgency, dysuria, frequency, genital lesions Musculoskeletal: Reports: back pain, joint pain, myalgia Integumentary: Denies: rash, lesions, pruritus Neurological: Reports: weakness, numbness Endocrine: Denies: fatigue, heat or cold intolerance Hematologic/Lymphatic: Denies: easy bruising, lymphadenopathy Allergic/Immunologic: Denies: urticaria, itchy eyes Exam - HEENT Head exam IM: Present: atraumatic Eye exam IM: Present: EOMI, normal appearance, PERRL ENT exam IM: Present: normal exam - Neurological Neurological exam: Present: CN II-XII intact - Respiratory Respiratory exam IM: Present: CTAB - GI/Abdominal GI/Abdominal exam IM: Present: normal bowel sounds, soft - Extremities Extremities exam IM: Present: tenderness - Skin Skin exam IM: Present: dry, warm - Constitutional Vitals: Temp Pulse Resp BP Pulse Ox 97.3 F L 85 18 103/71 96 02/27/18 09:00 02/27/18 09:00 02/27/18 09:00 02/27/18 09:00 02/26/18 17:40 General appearance: age & developmentally appropriate, well-groomed, well- nourished - Musculoskeletal Gait: slow Station: relaxed Strength & Tone: normal for patient - Psychiatric Patient Orientation: Yes Person, Yes Time, Yes Place Level of alertness: Alert Behavior: calm, cooperative Psychomotor activity: Slowed Eye Contact: Maintains Eye Contact Mood Description: Depressed Affect description: congruent with mood Speech Volume: Normal Speech pattern: normal rate, normal rhythm, normal tone, fluent, spontaneous Language & Vocabulary: consistent with education Thought Process: Linear, Goal Oriented Thought Content: Yes Suicidal ideation, No Homicidal ideation, No Overt delusions Perceptual Disturbances: No Auditory hallucinations, No Visual hallucinations Attention Span Ability: Capable of Focused Attention Memory Description: Grossly Intact Patient Reliability: Reliable Historian Fund of knowledge: Yes abstraction ability, Yes average, Yes aware of current events Intelligence Estimate: Average Judgment: Limited Insight: Partial Results - Labs Labs: Laboratory Last Values WBC 11.0 K/mcL (4.3-11.1) 02/26/18 17:59 RBC 5.19 M/mcL (4.19-5.50) 02/26/18 17:59 Hgb 15.4 g/dL (12.9-16.9) 02/26/18 17:59 Hct 44.6 % (37.5-50.1) 02/26/18 17:59 MCV 85.9 fL (83.0-100.0) 02/26/18 17:59 MCH 29.7 pg (28.0-33.3) 02/26/18 17:59 MCHC 34.5 g/dL (31.6-35.5) 02/26/18 17:59 RDW 12.8 % (11.5-14.5) 02/26/18 17:59 Plt Count 336 K/mcL (140-400) 02/26/18 17:59 MPV 9.6 fL (9.4-12.4) 02/26/18 17:59 Immature Gran % 0.2 % (0-4) 02/26/18 17:59 Seg Neutrophils % 78.9 % 02/26/18 17:59 Lymphocytes % 14.7 % 02/26/18 17:59 Monocytes % 4.4 % 02/26/18 17:59 Eosinophils % 1.6 % 02/26/18 17:59 Basophils % 0.2 % 02/26/18 17:59 Neutrophils # 8.7 K/mcL (1.6-8.9) 02/26/18 17:59 Lymphocytes # 1.6 K/mcL (0.6-4.6) 02/26/18 17:59 Monocytes # 0.5 K/mcL (0.0-1.3) 02/26/18 17:59 Eosinophils # 0.2 K/mcL (0.0-0.6) 02/26/18 17:59 Basophils # 0.0 K/mcL (0.0-0.2) 02/26/18 17:59 Sodium 140 mEq/L (136-145) 02/26/18 17:59 Potassium 3.6 mEq/L (3.5-5.1) 02/26/18 17:59 Chloride 108 mEq/L (98-107) H 02/26/18 17:59 Carbon Dioxide 25 mEq/L (23-29) 02/26/18 17:59 BUN 8 mg/dL (6-20) 02/26/18 17:59 Creatinine 1.06 mg/dL (0.70-1.30) 02/26/18 17:59 Est GFR ( Amer) > 60 (> 60) 02/26/18 17:59 Est GFR (Non-Af Amer) > 60 (> 60) 02/26/18 17:59 BUN/Creatinine Ratio 8 (6-26) 02/26/18 17:59 Glucose 95 mg/dL (70-105) 02/26/18 17:59 Calculated Osmolality 288 (280-300) 02/26/18 17:59 Calcium 9.3 mg/dL (8.6-10.3) 02/26/18 17:59 Urine Color Yellow (Yellow) 02/26/18 18:21 Urine Clarity Clear (Clear) 02/26/18 18:21 Urine pH 5.5 pH Units (5.0-8.0) 02/26/18 18:21 Ur Specific [place] 1.021 (1.010-1.025) 02/26/18 18:21 Urine Protein Negative mg/dL (Neg-Trace) 02/26/18 18:21 Urine Glucose (UA) Normal mg/dL (Normal) 02/26/18 18:21 Urine Ketones Negative mg/dL (Negative) 02/26/18 18:21 Urine Blood Negative (Negative) 02/26/18 18:21 Urine Nitrite Negative (Negative) 02/26/18 18:21 Urine Bilirubin Negative (Negative) 02/26/18 18:21 Urine Urobilinogen Normal mg/dL (Normal) 02/26/18 18:21 Ur Leukocyte Esterase Negative (Negative) 02/26/18 18:21 Salicylates < 2.5 mg/dL (15.0-30.0) L 02/26/18 17:59 Urine Opiates Screen Negative ng/mL (Gjprst=990) 02/26/18 18:21 Acetaminophen < 10 mcg/mL (10-20) L 02/26/18 17:59 Ur Barbiturates Screen Negative ng/mL (Dgjtem=424) 02/26/18 18:21 Ur Phencyclidine Scrn Negative ng/mL (Cutoff=25) 02/26/18 18:21 Ur Amphetamines Screen Negative ng/mL (Zfzqjn=4069) 02/26/18 18:21 U Benzodiazepines Scrn Negative ng/mL (Rwahnx=281) 02/26/18 18:21 Urine Cocaine Screen Positive ng/mL (Cutoff= 300) H 02/26/18 18:21 U Marijuana (THC) Screen Negative ng/mL (Cutoff = 50) 02/26/18 18:21 Ur Drug Screen Interp See Below 02/26/18 18:21 Ethyl Alcohol < 10 mg/dL (Less than 10) 02/26/18 17:59 Assessment and Plan (1) Major depression, recurrent Current visit: No Status: Acute Plan: Admit inpatient for safety and stabilization, Close observation, Suicide Precautions per unit protocol, Group Therapy, Monitor sleep, Monitor appetite Risks, benefits, side effects, alternatives discussed w/pt: Yes Patient agreeable to treatment: Yes Plans for Post Hospital Care: Home Estimated Length of Stay (Days): 4 Qualifiers: Active/Remission status: currently active Major depression episode severity : severe Psychotic features: without psychotic features Qualified Code(s): F33.2 - Major depressive disorder, recurrent severe without psychotic features (2) Cocaine abuse Current visit: No Status: Chronic Plan: Admit inpatient for safety and stabilization, Close observation, Suicide Precautions per unit protocol, Encourage participation in unit milieu, Group Therapy, Monitor sleep, Monitor appetite Risks, benefits, side effects, alternatives discussed w/pt: Yes Patient agreeable to treatment: Yes Estimated Length of Stay (Days): 4
[2018-02-27] MEDS: Gabapentin 300 MG CAPSULE PO SCH ×3 (11:12→21:28)
[2018-02-27] MEDS: Venlafaxine XR (24 HR) 150 MG CAP.ER.24H PO SCH (11:12)
[2018-02-27] MEDS: clonazePAM 1 MG TABLET PO PRN ×2 (11:16→21:31)
[2018-02-27] MEDS: MOM Conc 10 ML UD.LIQ PO PRN (19:02)
[2018-02-28] MEDS: Gabapentin 300 MG CAPSULE PO SCH ×3 (08:25→21:18)
[2018-02-28] MEDS: Venlafaxine XR (24 HR) 150 MG CAP.ER.24H PO SCH (08:25)
[2018-02-28] MEDS: Nicotine 21 MG PATCH.TD24 TD SCH (08:25)
[2018-02-28] MEDS: clonazePAM 1 MG TABLET PO PRN (08:59)
--- NOTE | 2018-02-28 16:03 | Psychiatry Progress Note ---
Date of Encounter: 02/28/18 Time of Encounter: 16:00 Subjective Interval history: Patient is a 52 yo W male. CC: I need to be on clonazepam 1 mg tid HPI: He has been out of medication. He would like begin trial of new medcation. He only recently start Effexor. now at 150 mg qpam. i will go back to clonazeapm 1 mg tid. That is a relative maximum. Other options for pain and mood. Seroquel, Zyprexa, baclofen, tizanidine and others. Review of Systems Psychiatric: Reports: depression, abnormal sleep pattern, suicidal ideation, hopelessness Results - Vital Signs Vital Signs: Temp Pulse Resp BP Pulse Ox 97.8 F 70 18 123/89 96 02/28/18 09:00 02/28/18 09:00 02/28/18 09:00 02/28/18 09:00 02/26/18 17:40 Assessment and Plan (1) Major depressive disorder, recurrent severe without psychotic features Current visit: Yes Status: Acute Plan: Continue hospitalization, Close observation, Suicide Precautions per unit protocol, Encourage participation in unit milieu, Group Therapy, Monitor sleep, Monitor appetite Risks, benefits, side effects, alternatives discussed w/pt: Yes Patient agreeable to treatment: Yes (2) Suicidal ideation Current visit: No Status: Acute Plan: Continue hospitalization, Close observation, Suicide Precautions per unit protocol, Secure weapons Risks, benefits, side effects, alternatives discussed w/pt: Yes Patient agreeable to treatment: Yes Consult Discharge Plan - Plan Referrals: NONE,PCP [Primary Care Provider] - Psychiatry Exam - Constitutional Vitals: Temp Pulse Resp BP Pulse Ox 97.8 F 70 18 123/89 96 02/28/18 09:00 02/28/18 09:00 02/28/18 09:00 02/28/18 09:00 02/26/18 17:40 General appearance: age & developmentally appropriate, well-groomed, well- nourished - Musculoskeletal Gait: slow Station: stiff Strength & Tone: normal for patient - Psychiatric Patient Orientation: Yes Person, Yes Time, Yes Place Level of alertness: Alert Behavior: tearful, guarded Psychomotor activity: Slowed Eye Contact: Maintains Eye Contact Mood Description: Depressed Affect description: congruent with mood, full range Speech Volume: Normal Speech pattern: normal rate, normal rhythm, normal tone, fluent, spontaneous Language & Vocabulary: consistent with education Thought Process: Linear, Goal Oriented, Slowed Thinking Thought Content: Yes Suicidal ideation, No Homicidal ideation, No Overt delusions Perceptual Disturbances: No Auditory hallucinations, No Visual hallucinations Attention Span Ability: Capable of Focused Attention Memory Description: Grossly Intact Patient Reliability: Reliable Historian Fund of knowledge: Yes abstraction ability, Yes aware of current events Intelligence Estimate: Average Judgment: Fair Insight: Partial
[2018-02-28] MEDS: clonazePAM 1 MG TABLET PO SCH ×2 (17:37→23:47)
[2018-02-28] MEDS: Acetaminophen 325 MG TABLET PO PRN (19:08)
[2018-02-28] MEDS ORDERED: clonazePAM 1 MG TABLET PO SCH (21:00)
[2018-03-01] MEDS: Gabapentin 300 MG CAPSULE PO SCH ×2 (08:19→14:29)
[2018-03-01] MEDS: clonazePAM 1 MG TABLET PO SCH ×3 (08:19→20:36)
[2018-03-01] MEDS: Venlafaxine XR (24 HR) 150 MG CAP.ER.24H PO SCH (08:20)
[2018-03-01] MEDS: Nicotine 21 MG PATCH.TD24 TD SCH (08:20)
--- NOTE | 2018-03-01 15:51 | Psychiatry Progress Note ---
Date of Encounter: 03/01/18 Time of Encounter: 15:45 Subjective Interval history: ID: 52 yo W males CC: i would like surgery on my back, cortisone does not help HPI: patient would like to see mk tinoco np next wednesday. he has remaiend on currnet meds and tolerated Effexor 150 mg , He has started seroqeul. he would prefer a surgeon to a pain doctor. He plans ot speak with her about this , he agrees to increasse in gabepentin and seorquel for mood and modulayopm ppf pain. Review of Systems Psychiatric: Reports: depression, abnormal sleep pattern, suicidal ideation, hopelessness Results - Vital Signs Vital Signs: Temp Pulse Resp BP Pulse Ox 97.8 F 73 18 115/73 96 03/01/18 09:00 03/01/18 09:00 03/01/18 09:00 03/01/18 09:00 02/26/18 17:40 Assessment and Plan (1) Major depressive disorder, recurrent severe without psychotic features Current visit: Yes Status: Acute Risks, benefits, side effects, alternatives discussed w/pt: Yes Patient agreeable to treatment: Yes (2) Suicidal ideation Current visit: No Status: Acute Risks, benefits, side effects, alternatives discussed w/pt: Yes Patient agreeable to treatment: Yes Consult Discharge Plan - Plan Referrals: [facility] [Outside] [facility] [Outside] - 03/10/18 10:00 am (The above appointment is with Tao for mental health counseling. You will also see Gracie for substance abuse counseling on 03/09/2018 at 1:00pm) Manda Tinoco [Advanced Practice Nurse] - 03/09/18 2:00 pm (The above appointment is with Manda Tinoco for primary health care and medication management services. Your needs for Vivitrol treatment may be assessed as well. ) Psychiatry Exam - Constitutional Vitals: Temp Pulse Resp BP Pulse Ox 97.8 F 73 18 115/73 96 03/01/18 09:00 03/01/18 09:00 03/01/18 09:00 03/01/18 09:00 02/26/18 17:40 General appearance: age & developmentally appropriate, disheveled - Musculoskeletal Gait: slow Station: stooped Strength & Tone: normal for patient - Psychiatric Patient Orientation: Yes Person Level of alertness: Alert Behavior: calm, cooperative Psychomotor activity: Normal Eye Contact: Maintains Eye Contact Mood Description: Depressed Affect description: dysphoric Speech Volume: Normal Speech pattern: normal rate, normal rhythm, normal tone, fluent, spontaneous Language & Vocabulary: consistent with education Thought Process: Linear, Goal Oriented Thought Content: Yes Suicidal ideation, No Homicidal ideation, No Overt delusions Perceptual Disturbances: No Auditory hallucinations, No Visual hallucinations Attention Span Ability: Capable of Focused Attention Memory Description: Grossly Intact Patient Reliability: Questionable Historian Fund of knowledge: Yes abstraction ability, Yes aware of current events Intelligence Estimate: Average Judgment: Limited Insight: Minimal
[2018-03-01] MEDS: Acetaminophen 325 MG TABLET PO PRN (15:57)
[2018-03-01] MEDS: Gabapentin 400 MG CAPSULE PO SCH (20:36)
[2018-03-02] MEDS: Gabapentin 400 MG CAPSULE PO SCH (08:12)
[2018-03-02] MEDS: Venlafaxine XR (24 HR) 150 MG CAP.ER.24H PO SCH (08:12)
[2018-03-02] MEDS: clonazePAM 1 MG TABLET PO SCH ×3 (08:13→21:41)
[2018-03-02] MEDS: Nicotine 21 MG PATCH.TD24 TD SCH (08:13)
--- NOTE | 2018-03-02 12:54 | Psychiatry Progress Note ---
Date of Encounter: 03/02/18 Time of Encounter: 12:30 Subjective Interval history: ID: The patient's 52-year-old white male he returns for follow-up chief complaint I have bad constipation. 11 told that I have chronic constipation. The patient has reported ongoing depression and while he says that he is not suicidal within the hospital is not sure what will happen when he gets out. The patient is aware of his follow-up appointments on the and the . He reports that he is able to sleep without waking up. Nonetheless when asked about depression and pain he feels the pain is a significant contributor he still wishes to go to a surgeon to have the lumbar dysfunction addressed surgically and not to go to a pain medicine doctor. Consequently is not wanted to taper the clonazepam but he is willing to increase gabapentin to 600 mg 3 times a day he is willing to increase the Seroquel to 300 mg daily at bedtime. He is concerned about weight gain and constipation. He would like to consider an increase in antidepressant as depression and sadness continues. The patient and I discussed the importance protocols before getting treatment for painful conditions. He was aware of this we reviewed his history. I told him that he had a urine drug screen was positive for cocaine his response was to tell me that in a few days that would not have been positive. Nonetheless recent advances in laboratory studies can detect even smaller amounts of cocaine metabolites and he was informed of this. He was informed that he might have to sign a pain contract of pain medicines were continued and that clonazepam may need to be tapered and discontinued. The patient verbalized understanding Review of Systems Gastrointestinal: Reports: constipation Psychiatric: Reports: depression, suicidal ideation, hopelessness, irritability Results - Vital Signs Vital Signs: Temp Pulse Resp BP Pulse Ox 97.3 F L 63 20 112/72 96 03/02/18 09:00 03/02/18 09:00 03/02/18 09:00 03/02/18 09:00 02/26/18 17:40 Assessment and Plan (1) Major depressive disorder, recurrent severe without psychotic features Current visit: Yes Status: Acute Plan: Continue hospitalization, Close observation, Suicide Precautions per unit protocol, Encourage participation in unit milieu, Group Therapy Risks, benefits, side effects, alternatives discussed w/pt: Yes Patient agreeable to treatment: Yes (2) Suicidal ideation Current visit: No Status: Acute Plan: Encourage participation in unit milieu, Secure weapons Risks, benefits, side effects, alternatives discussed w/pt: Yes Patient agreeable to treatment : Yes (3) Constipation Current visit: Yes Status: Acute Plan: Continue hospitalization, Close observation, Monitor appetite Risks, benefits, side effects, alternatives discussed w/pt: Yes Patient agreeable to treatment: Yes Qualifiers: Constipation type: unspecified constipation type Qualified Code(s): K59.00 - Constipation, unspecified Consult Discharge Plan - Plan Referrals: Billy Fajardo [facility] [Outside] - 03/10/18 10:00 am (The above appointment is with Tao for mental health counseling. You will also see Gracie for substance abuse counseling on 03/09/2018 at 1:00pm) Manda Hollins [Advanced Practice Nurse] - 03/09/18 2:00 pm (The above appointment is with Manda Hollins for primary health care and medication management services. Your needs for Vivitrol treatment may be assessed as well. ) Psychiatry Exam - Constitutional Vitals: Temp Pulse Resp BP Pulse Ox 97.3 F L 63 20 112/72 96 03/02/18 09:00 03/02/18 09:00 03/02/18 09:00 03/02/18 09:00 02/26/18 17:40 General appearance: age & developmentally appropriate, well-groomed, well- nourished - Musculoskeletal Gait: shuffling Station: relaxed Strength & Tone: normal for patient - Psychiatric Patient Orientation: Yes Person, Yes Time, Yes Place Level of alertness: Alert Behavior: calm, cooperative Psychomotor activity: Slowed Eye Contact: Maintains Eye Contact Mood Description: Depressed, Irritable Affect description: congruent with mood, blunted Speech Volume: Normal Speech pattern: normal rate, normal rhythm, normal tone, fluent, spontaneous Language & Vocabulary: consistent with education Thought Process: Linear, Goal Oriented Thought Content: Yes Suicidal ideation, No Homicidal ideation, No Overt delusions Perceptual Disturbances: No Auditory hallucinations, No Visual hallucinations Attention Span Ability: Capable of Focused Attention Memory Description: Grossly Intact Patient Reliability: Reliable Historian Fund of knowledge: Yes abstraction ability, Yes aware of current events Intelligence Estimate: Average Judgment: Fair Insight: Partial
[2018-03-02] MEDS: Gabapentin 300 MG CAPSULE PO SCH ×2 (14:32→21:41)
[2018-03-02] MEDS: MOM Conc 10 ML UD.LIQ PO PRN (14:41)
[2018-03-02] MEDS: Acetaminophen 325 MG TABLET PO PRN (14:49)
[2018-03-02] MEDS: Sennosides/Docusate Sodium TABLET PO SCH (22:05)
[2018-03-03] MEDS: Venlafaxine XR (24 HR) 150 MG CAP.ER.24H PO SCH (09:06)
[2018-03-03] MEDS: clonazePAM 1 MG TABLET PO SCH ×3 (09:07→20:29)
[2018-03-03] MEDS: Sennosides/Docusate Sodium TABLET PO SCH ×2 (09:07→20:29)
[2018-03-03] MEDS: Nicotine 21 MG PATCH.TD24 TD SCH (09:08)
[2018-03-03] MEDS: Gabapentin 300 MG CAPSULE PO SCH ×3 (09:08→20:29)
--- NOTE | 2018-03-03 15:29 | Psychiatry Progress Note ---
Date of Encounter: 03/03/18 Time of Encounter: 15:15 Subjective Interval history: ID: 52 year old W male CC: I am not ready to leave, I would nt have any medication, HPI: He has participated in some therapy. he still complains of back pain. he started on a medicaiotn for constipation he reports low energy. he is willing to increase effexor. Review of Systems Psychiatric: Reports: depression, suicidal ideation, hopelessness, irritability Results - Vital Signs Vital Signs: Temp Pulse Resp BP Pulse Ox 98.6 F 85 18 109/76 96 03/03/18 09:00 03/03/18 09:00 03/03/18 09:00 03/03/18 09:00 02/26/18 17:40 Assessment and Plan (1) Major depressive disorder, recurrent severe without psychotic features Current visit: Yes Status: Acute Plan: Continue hospitalization, Close observation, Secure weapons Risks, benefits, side effects, alternatives discussed w/pt: Yes Patient agreeable to treatment: Yes (2) Suicidal ideation Current visit: No Status: Acute Plan: Monitor sleep, Secure weapons Risks, benefits, side effects, alternatives discussed w/pt: Yes Patient agreeable to treatment: Yes (3) Constipation Current visit: Yes Status: Acute Plan: Monitor appetite Risks, benefits, side effects, alternatives discussed w /pt: Yes Patient agreeable to treatment: Yes Qualifiers: Constipation type: unspecified constipation type Qualified Code(s): K59.00 - Constipation, unspecified Consult Discharge Plan - Plan Referrals: [facility] [Outside] - 03/10/18 3:00 pm (The above appointment is with Martha Norris. Please bring insurance card and arrive 15 minutes early for paperwork. ) [facility] [Outside] - 03/10/18 10:00 am (The above appointment is with Tao for mental health counseling. You will also see Gracie for substance abuse counseling on 03/09/2018 at 1:00pm) Manda Hollins [Advanced Practice Nurse] - 03/09/18 2:00 pm (The above appointment is with Manda Hollins for primary health care and medication management services. Your needs for Vivitrol treatment may be assessed as well. ) Psychiatry Exam - Constitutional Vitals: Temp Pulse Resp BP Pulse Ox 98.6 F 85 18 109/76 96 03/03/18 09:00 03/03/18 09:00 03/03/18 09:00 03/03/18 09:00 02/26/18 17:40 General appearance: age & developmentally appropriate, well-groomed, well- nourished - Musculoskeletal Gait: normal Station: relaxed Strength & Tone: normal for patient - Psychiatric Patient Orientation: Yes Person, Yes Time, Yes Place Level of alertness: Alert Behavior: calm, cooperative Mood Description: Depressed Affect description: congruent with mood, full range Speech Volume: Normal Speech pattern: normal rate, normal rhythm, normal tone, fluent, spontaneous Language & Vocabulary: consistent with education Thought Process: Linear, Goal Oriented Thought Content: Yes Suicidal ideation, No Homicidal ideation, No Overt delusions Perceptual Disturbances: No Auditory hallucinations, No Visual hallucinations Attention Span Ability: Capable of Focused Attention Memory Description: Grossly Intact Patient Reliability: Reliable Historian Fund of knowledge: Yes abstraction ability, Yes aware of current events Intelligence Estimate: Average Judgment: Limited Insight: Minimal
[2018-03-03] MEDS: MOM Conc 10 ML UD.LIQ PO PRN (19:25)
[2018-03-03] MEDS: Acetaminophen 325 MG TABLET PO PRN (19:25)
[2018-03-04] MEDS: Sennosides/Docusate Sodium TABLET PO SCH ×2 (09:19→20:34)
[2018-03-04] MEDS: Gabapentin 300 MG CAPSULE PO SCH ×3 (09:19→20:35)
[2018-03-04] MEDS: Venlafaxine XR (24 HR) 75 MG CAP.ER.24H PO SCH (09:20)
[2018-03-04] MEDS: Nicotine 21 MG PATCH.TD24 TD SCH (09:20)
[2018-03-04] MEDS: clonazePAM 1 MG TABLET PO SCH ×3 (09:20→20:34)
--- NOTE | 2018-03-04 16:26 | Psychiatry Progress Note ---
Date of Encounter: 03/04/18 Time of Encounter: 16:00 Subjective Interval history: DD the patient's 52-year-old white male. Chief complaint I went to group and I got yelled at that is why I do not like going to groups. History of present illness the patient had a goal of trying to be more involved in groups however he was talking about a group about spirituality and one of the other patients and was somewhat angry got mad and called him stupid. The patient immediately left the group and he went back to his room. He felt somewhat down. He notes no suicidal ideation. The patient has an need of residential resources but his residential resources include difficulties with a flea infestation. The patient has tolerated Effexor at 225 mg he notes the constipation still a problem and he is inquiring about the letter and would like a referral to a surgeon for his back pain. Review of Systems Psychiatric: Reports: depression, suicidal ideation, hopelessness, irritability Results - Vital Signs Vital Signs: Temp Pulse Resp BP Pulse Ox 97.3 F L 84 20 124/89 96 03/04/18 09:00 03/04/18 09:00 03/04/18 09:00 03/04/18 09:00 02/26/18 17:40 Assessment and Plan (1) Major depressive disorder, recurrent severe without psychotic features Current visit: Yes Status: Acute Risks, benefits, side effects, alternatives discussed w/pt: Yes Patient agreeable to treatment: Yes (2) Suicidal ideation Current visit: No Status: Acute Risks, benefits, side effects, alternatives discussed w/pt: Yes Patient agreeable to treatment: Yes (3) Constipation Current visit: Yes Status: Acute Risks, benefits, side effects, alternatives discussed w/pt: Yes Patient agreeable to treatment: Yes Qualifiers: Constipation type: unspecified constipation type Qualified Code(s): K59.00 - Constipation, unspecified Consult Discharge Plan - Plan Referrals: [facility] [Outside] - 03/10/18 3:00 pm (The above appointment is with Martha Norris to open your case as a client so you may receive intensive case management services. Please bring insurance card and arrive 15 minutes early for paperwork. You must bring your insurance card with you in order to be seen.) Billy Davis [facility] [Outside] - 03/09/18 1:00 pm (The above appointment is with Gracie for outpatient substance abuse counseling services. You will also see Tao Gomez for outpatient mental health counseling services on at 10:00am.) Manda Hollins [Advanced Practice Nurse] - 03/09/18 2:00 pm (The above appointment is with Manda Hollins for primary health care and medication management services. Your needs for Vivitrol treatment may be assessed as well. ) Psychiatry Exam - Constitutional Vitals: Temp Pulse Resp BP Pulse Ox 97.3 F L 84 20 124/89 96 03/04/18 09:00 03/04/18 09:00 03/04/18 09:00 03/04/18 09:00 02/26/18 17:40 General appearance: age & developmentally appropriate, well-groomed, average - Musculoskeletal Gait: normal Station: other Strength & Tone: normal for patient - Psychiatric Patient Orientation: Yes Time, Yes Place Level of alertness: Alert Behavior: calm Psychomotor activity: Normal Eye Contact: Maintains Eye Contact Mood Description: Angry, Depressed Affect description: flat, dysphoric Speech Volume: Soft/Quiet Speech pattern: normal rate Language & Vocabulary: consistent with education Thought Process: Logical Thought Content: Yes Suicidal ideation Perceptual Disturbances: No Auditory hallucinations, No Visual hallucinations Attention Span Ability: Capable of Focused Attention Memory Description: Grossly Intact Patient Reliability: Questionable Historian Fund of knowledge: Yes abstraction ability, Yes aware of current events Intelligence Estimate: Average Judgment: Fair Insight: Partial
[2018-03-05] MEDS: Gabapentin 300 MG CAPSULE PO SCH (08:49)
[2018-03-05] MEDS: Venlafaxine XR (24 HR) 75 MG CAP.ER.24H PO SCH (08:49)
[2018-03-05] MEDS: Nicotine 21 MG PATCH.TD24 TD SCH (08:49)
[2018-03-05] MEDS: clonazePAM 1 MG TABLET PO SCH ×3 (08:50→20:57)
[2018-03-05] MEDS: Sennosides/Docusate Sodium TABLET PO SCH ×2 (08:50→20:58)
[2018-03-05] MEDS ORDERED: Simethicone 80 MG TAB.CHEW PO PRN (10:47)
--- NOTE | 2018-03-05 10:51 | Psychiatry Progress Note ---
Date of Encounter: 03/05/18 Time of Encounter: 10:45 Review of Systems Psychiatric: Reports: depression, suicidal ideation, hopelessness, irritability Results - Vital Signs Vital Signs: Temp Pulse Resp BP Pulse Ox 98.8 F 83 16 98/68 96 03/05/18 09:00 03/05/18 09:00 03/05/18 09:00 03/05/18 09:00 02/26/18 17:40 Assessment and Plan (1) Major depressive disorder, recurrent severe without psychotic features Current visit: Yes Status: Acute Risks, benefits, side effects, alternatives discussed w/pt: Yes Patient agreeable to treatment: Yes (2) Suicidal ideation Current visit: No Status: Acute Risks, benefits, side effects, alternatives discussed w/pt: Yes Patient agreeable to treatment: Yes (3) Constipation Current visit: Yes Status: Acute Risks, benefits, side effects, alternatives discussed w/pt: Yes Patient agreeable to treatment: Yes Qualifiers: Constipation type: unspecified constipation type Qualified Code(s): K59.00 - Constipation, unspecified Consult Discharge Plan - Plan Referrals: [facility] [Outside] - 03/10/18 3:00 pm (The above appointment is with Martha Norris to open your case as a client so you may receive intensive case management services. Please bring insurance card and arrive 15 minutes early for paperwork. You must bring your insurance card with you in order to be seen.) [facility] [Outside] - 03/09/18 1:00 pm (The above appointment is with Gracie for outpatient substance abuse counseling services. You will also see Tao Gomez for outpatient mental health counseling services on at 10:00am.) Manda Hollins [Advanced Practice Nurse] - 03/09/18 2:00 pm (The above appointment is with Manda Hollins for primary health care and medication management services. Your needs for Vivitrol treatment may be assessed as well. ) Psychiatry Exam - Constitutional Vitals: Temp Pulse Resp BP Pulse Ox 98.8 F 83 16 98/68 96 03/05/18 09:00 03/05/18 09:00 03/05/18 09:00 03/05/18 09:00 02/26/18 17:40 General appearance: age & developmentally appropriate, well-groomed, well- nourished - Musculoskeletal Gait: slow Station: stiff Strength & Tone: normal for patient - Psychiatric Patient Orientation: Yes Person, Yes Time, Yes Place Level of alertness: Alert Behavior: calm, cooperative Psychomotor activity: Normal Eye Contact: Maintains Eye Contact Mood Description: Depressed Affect description: constricted Speech Volume: Normal Speech pattern: normal rate, normal rhythm, normal tone, fluent, spontaneous Language & Vocabulary: consistent with education Thought Process: Linear, Goal Oriented Thought Content: Yes Suicidal ideation, No Homicidal ideation, No Overt delusions Perceptual Disturbances: No Auditory hallucinations, No Visual hallucinations Attention Span Ability: Capable of Focused Attention Memory Description: Grossly Intact Fund of knowledge: Yes abstraction ability, Yes aware of current events Intelligence Estimate: Average Judgment: Fair Insight: Partial
[2018-03-05] MEDS: Gabapentin 400 MG CAPSULE PO SCH ×2 (15:24→20:58)
[2018-03-05] MEDS: Acetaminophen 325 MG TABLET PO PRN (20:57)
[2018-03-06] MEDS: Nicotine 21 MG PATCH.TD24 TD SCH (08:29)
[2018-03-06] MEDS: Gabapentin 400 MG CAPSULE PO SCH ×3 (08:30→20:52)
[2018-03-06] MEDS: Venlafaxine XR (24 HR) 75 MG CAP.ER.24H PO SCH (08:30)
[2018-03-06] MEDS: clonazePAM 1 MG TABLET PO SCH ×3 (08:30→20:51)
[2018-03-06] MEDS: Sennosides/Docusate Sodium TABLET PO SCH ×2 (08:31→20:52)
--- NOTE | 2018-03-06 10:21 | Psychiatry Progress Note ---
Date of Encounter: 03/06/18 Time of Encounter: 10:15 Subjective Interval history: ID the patient's 52-year-old white male. Chief complaint: I had trouble falling asleep last night. I have constipation but my bowels or start to move. History of present illness. The patient has increased to gabapentin to 800 mg 3 times a day he notes some improvement in anxiety he still has depression with some suicidal ideation. When asked about substance abuse he said that he had been to rehabilitation 6 or 7 times. Does not like AA as it is a group setting. And he would like to be discharged Wednesday is granddaughter's birthday is on Wednesday. The patient discussed the need for surgical consultation. He plans talked Manda Hollins about a referral to a back surgeon. I told him about getting his medical records at the time of discharge and that he may need the actual images lumbar spine to take to a surgeon for other doctor evaluating for back pain. Patient is currently on clonazepam but he is aware that his clonazepam prescription may not be filled. I Prevacid discussed the concerns that I have regarding withdrawal.. Nonetheless the patient is aware of these and wishes to remain on clonazepam dose. The gabapentin is partially cross tolerant and may help Review of Systems Psychiatric: Reports: depression, suicidal ideation, hopelessness, irritability Results - Vital Signs Vital Signs: Temp Pulse Resp BP Pulse Ox 97.6 F 73 18 124/94 96 03/06/18 09:00 03/06/18 09:00 03/06/18 09:00 03/06/18 09:00 02/26/18 17:40 Assessment and Plan (1) Major depressive disorder, recurrent severe without psychotic features Current visit: Yes Status: Acute Plan: Continue hospitalization, Close observation, Suicide Precautions per unit protocol, Encourage participation in unit milieu Risks, benefits, side effects , alternatives discussed w/pt: Yes Patient agreeable to treatment: Yes (2) Suicidal ideation Current visit: No Status: Acute Plan: Continue hospitalization, Close observation, Suicide Precautions per unit protocol, Encourage participation in unit milieu, Secure weapons Risks, benefits, side effects, alternatives discussed w/pt: Yes Patient agreeable to treatment: Yes (3) Constipation Current visit: Yes Status: Acute Risks, benefits, side effects, alternatives discussed w/pt: Yes Patient agreeable to treatment: Yes Qualifiers: Constipation type: unspecified constipation type Qualified Code(s): K59.00 - Constipation, unspecified (4) Cocaine abuse Current visit: No Status: Chronic Plan: Group Therapy, Family/Supportive other meeting Risks, benefits, side effects, alternatives discussed w/pt: Yes Patient agreeable to treatment: Yes Consult Discharge Plan - Plan Referrals: [facility] [Outside] - 03/10/18 3:00 pm (The above appointment is with Martha Norris to open your case as a client so you may receive intensive case management services. Please bring insurance card and arrive 15 minutes early for paperwork. You must bring your insurance card with you in order to be seen.) Billy [facility] [Outside] - 03/09/18 1:00 pm (The above appointment is with Gracie for outpatient substance abuse counseling services. You will also see Tao Gomez for outpatient mental health counseling services on at 10:00am.) Manda Hollins [Advanced Practice Nurse] - 03/09/18 2:00 pm (The above appointment is with Manda Hollins for primary health care and medication management services. Your needs for Vivitrol treatment may be assessed as well. ) Psychiatry Exam - Constitutional Vitals: Temp Pulse Resp BP Pulse Ox 97.6 F 73 18 124/94 96 03/06/18 09:00 03/06/18 09:00 03/06/18 09:00 03/06/18 09:00 02/26/18 17:40 General appearance: age & developmentally appropriate, well-groomed, well- nourished - Musculoskeletal Gait: normal Station: relaxed Strength & Tone: normal for patient - Psychiatric Patient Orientation: Yes Person, Yes Time, Yes Place Level of alertness: Alert Behavior: calm, cooperative Psychomotor activity: Normal Eye Contact: Maintains Eye Contact Mood Description: Depressed Affect description: congruent with mood, constricted, dysphoric Speech Volume: Normal Speech pattern: normal rate, normal rhythm, normal tone, fluent, spontaneous Language & Vocabulary: consistent with education Thought Process: Linear, Goal Oriented Thought Content: No Suicidal ideation, No Homicidal ideation, No Overt delusions Perceptual Disturbances: No Auditory hallucinations, No Visual hallucinations Attention Span Ability: Capable of Focused Attention Memory Description: Grossly Intact Patient Reliability: Reliable Historian Fund of knowledge: Yes abstraction ability, Yes aware of current events Intelligence Estimate: Average Judgment: Fair Insight: Partial
[2018-03-07] MEDS: Nicotine 21 MG PATCH.TD24 TD SCH (08:57)
[2018-03-07] MEDS: Gabapentin 400 MG CAPSULE PO SCH ×3 (08:58→21:03)
[2018-03-07] MEDS: Sennosides/Docusate Sodium TABLET PO SCH ×2 (08:58→21:01)
[2018-03-07] MEDS: clonazePAM 1 MG TABLET PO SCH ×3 (08:58→21:04)
[2018-03-07] MEDS: Venlafaxine XR (24 HR) 75 MG CAP.ER.24H PO SCH (08:58)
--- NOTE | 2018-03-07 13:35 | Psychiatry Progress Note ---
Date of Encounter: 03/07/18 Time of Encounter: 13:00 Subjective Interval history: Pt is a 52 yo,, male, who presents for depression and personality D/O . Pt noted that he feels he is still very depressed. Pt noted I still occasionally have thoughts to harm myself..nothing current though. Pt denied any side effects to current medications. Pt noted he felt safe and comfortable on the unit and will tell staff if things get bad again. Pt was in agreement with current treatment plan. Pt noted that he is doing alright today. Pt noted he slept alright last night. Pt noted his appetite is too good. Pt rated his depression a 7, on a scale of zero to ten with ten being the worst and zero being none. Pt rate his anxiety a 7, on the same scale. Pt denied any auditory or visiual hallucinations. Pt denied any current thoughts to harm himself or anyone else. No TD noted, AIMS=0 MSE: Alert and Oriented x4 Appearance: neatly groomed dressed in appropriate civilian attire Behavior: friendly, courteous, polite Speech: Fluent, normal tone, normal rate Mood: depressed Affect: mood congruent Thought content: no HI noted, no SI noted, Questionable delusions noted Psychosis: noted visiual hallucinations. Thought Process: Linear coherent goal directed Judgment: questionable. Insight: questionable. Plan 1.Interval hx 2.Continue current medications 3.Review current labs 4.Pt had an opportunity to ask questions and discuss current treatment plan. 5.Supportive therapy was provided 6.Pt encouraged to consider group or individual therapy 7.Pt was in agreement with treatment plan. 8.Pt was educated on the risks benefits and side effects of current medications. Review of Systems Constitutional: Denies: fever, chills, weakness, weight change Eyes: Denies: eye pain, vision change Ears, Nose, Throat: Denies: ear pain, throat pain, dental pain, hearing loss, congestion Cardiovascular: Denies: chest pain, palpitations, dyspnea on exertion Respiratory: Denies: cough, dyspnea, wheezes Gastrointestinal: Denies: abdominal pain, nausea, vomiting, diarrhea, constipation Musculoskeletal: Denies: joint swelling, joint pain Neurological: Denies: headache, weakness, numbness, memory loss Psychiatric: Reports: depression, suicidal ideation, hopelessness, irritability Results - Vital Signs Vital Signs: Temp Pulse Resp BP Pulse Ox 97.7 F 72 16 132/92 96 03/07/18 09:00 03/07/18 09:00 03/07/18 09:00 03/07/18 09:00 02/26/18 17:40 Assessment and Plan (1) Suicidal ideation Current visit: No Status: Acute Plan: Continue hospitalization, Close observation, Suicide Precautions per unit protocol, Encourage participation in unit milieu, Group Therapy, Monitor sleep, Monitor appetite Risks, benefits, side effects, alternatives discussed w/pt: Yes Patient agreeable to treatment: Yes (2) Opiate dependence Current visit: No Status: Chronic Plan: Continue hospitalization, Close observation, Suicide Precautions per unit protocol, Encourage participation in unit milieu, Group Therapy, Monitor sleep, Monitor appetite Risks, benefits, side effects, alternatives discussed w/pt: Yes Patient agreeable to treatment: Yes Qualifiers: Substance use status: uncomplicated Qualified Code(s): F11.20 - Opioid dependence, uncomplicated (3) Cocaine abuse Current visit: No Status: Chronic Plan: Continue hospitalization, Close observation, Suicide Precautions per unit protocol, Encourage participation in unit milieu, Group Therapy, Monitor sleep, Monitor appetite Risks, benefits, side effects, alternatives discussed w/pt: Yes Patient agreeable to treatment: Yes (4) Suicidal ideation Current visit: Yes Status: Acute Plan: Continue hospitalization, Close observation, Suicide Precautions per unit protocol, Encourage participation in unit milieu, Group Therapy, Monitor sleep, Monitor appetite Risks, benefits, side effects, alternatives discussed w/pt: Yes Patient agreeable to treatment: Yes (5) Major depressive disorder, recurrent severe without psychotic features Current visit: Yes Status: Acute Plan: Continue hospitalization, Close observation, Suicide Precautions per unit protocol, Encourage participation in unit milieu, Group Therapy, Monitor sleep, Monitor appetite Risks, benefits, side effects, alternatives discussed w/pt: Yes Patient agreeable to treatment: Yes Consult Discharge Plan - Plan Referrals: [facility] [Outside] - 03/10/18 3:00 pm (The above appointment is with Martha Norris to open your case as a client so you may receive intensive case management services. Please bring insurance card and arrive 15 minutes early for paperwork. You must bring your insurance card with you in order to be seen.) Billy Davis [facility] [Outside] - 03/09/18 1:00 pm (The above appointment is with Gracie for outpatient substance abuse counseling services. You will also see Tao Gomez for outpatient mental health counseling services on at 10:00am.) Manda Hollins [Advanced Practice Nurse] - 03/09/18 2:00 pm (The above appointment is with Manda Hollins for primary health care and medication management services. Your needs for Vivitrol treatment may be assessed as well. ) Psychiatry Exam - Constitutional Vitals: Temp Pulse Resp BP Pulse Ox 97.7 F 72 16 132/92 96 03/07/18 09:00 03/07/18 09:00 03/07/18 09:00 03/07/18 09:00 02/26/18 17:40 General appearance: age & developmentally appropriate, well-groomed, well- nourished - Musculoskeletal Gait: normal Station: relaxed Strength & Tone: normal for patient - Psychiatric Patient Orientation: Yes Person, Yes Time, Yes Place Level of alertness: Alert Behavior: calm, cooperative Psychomotor activity: Slowed Eye Contact: Maintains Eye Contact Mood Description: Depressed Affect description: congruent with mood, full range, dysphoric Speech Volume: Normal Speech pattern: normal rate, normal rhythm, normal tone, fluent, spontaneous Language & Vocabulary: consistent with education Thought Process: Linear, Goal Oriented Thought Content: Yes Suicidal ideation, No Homicidal ideation, No Overt delusions Perceptual Disturbances: No Auditory hallucinations, No Visual hallucinations Attention Span Ability: Capable of Focused Attention Memory Description: Grossly Intact Patient Reliability: Reliable Historian Fund of knowledge: Yes abstraction ability, Yes aware of current events Intelligence Estimate: Average Judgment: Limited Insight: Minimal
[2018-03-08] MEDS: clonazePAM 1 MG TABLET PO SCH ×3 (08:26→20:21)
[2018-03-08] MEDS: Sennosides/Docusate Sodium TABLET PO SCH ×2 (08:26→20:21)
[2018-03-08] MEDS: Gabapentin 400 MG CAPSULE PO SCH ×3 (08:26→20:21)
[2018-03-08] MEDS: Nicotine 21 MG PATCH.TD24 TD SCH (08:27)
[2018-03-08] MEDS: Venlafaxine XR (24 HR) 75 MG CAP.ER.24H PO SCH (08:27)
--- NOTE | 2018-03-08 15:22 | Psychiatry Progress Note ---
Date of Encounter: 03/08/18 Time of Encounter: 14:40 Subjective Interval history: Patient seen for follow-up. Case discussed with treatment team. He denies suicidal and homicidal ideation, continued to complain of back pain and preoccupied with multiple somatic issues like constipation and pain. He believes adding were increasing gabapentin has been helpful. I had long discussion with him regarding daily activities and the need to commit to increments of activity that he can tolerate on a daily basis. He was educated about living with pain and dependence on medication will not eliminate chronic pain. Review of Systems Psychiatric: Reports: depression, suicidal ideation, hopelessness, irritability Results - Vital Signs Vital Signs: Temp Pulse Resp BP Pulse Ox 97.8 F 76 18 133/96 96 03/08/18 09:06 03/08/18 09:06 03/08/18 09:06 03/08/18 09:06 02/26/18 17:40 Consult Discharge Plan - Plan Referrals: [facility] [Outside] - 03/10/18 3:00 pm (The above appointment is with Martha Norris to open your case as a client so you may receive intensive case management services. Please bring insurance card and arrive 15 minutes early for paperwork. You must bring your insurance card with you in order to be seen.) [facility] [Outside] - 03/09/18 1:00 pm (The above appointment is with Gracie for outpatient substance abuse counseling services. You will also see Tao Gomez for outpatient mental health counseling services on at 10:00am.) Manda Hollins [Advanced Practice Nurse] - 03/09/18 2:00 pm (The above appointment is with Manda Hollins for primary health care and medication management services. Your needs for Vivitrol treatment may be assessed as well. ) Psychiatry Exam - Constitutional Vitals: Temp Pulse Resp BP Pulse Ox 97.8 F 76 18 133/96 96 03/08/18 09:06 03/08/18 09:06 03/08/18 09:06 03/08/18 09:06 02/26/18 17:40 General appearance: age & developmentally appropriate, well-groomed, well- nourished - Musculoskeletal Gait: normal Station: relaxed Strength & Tone: normal for patient - Psychiatric Patient Orientation: Yes Person, Yes Time, Yes Place Level of alertness: Alert Behavior: calm, cooperative Psychomotor activity: Slowed Eye Contact: Maintains Eye Contact Mood Description: Euthymic/stable, Depressed Affect description: congruent with mood, constricted Speech Volume: Normal Speech pattern: normal rate, normal rhythm, normal tone, fluent, limited Language & Vocabulary: consistent with education Thought Process: Linear, Goal Oriented Thought Content: No Suicidal ideation, No Homicidal ideation, No Overt delusions Perceptual Disturbances: No Auditory hallucinations, No Visual hallucinations Attention Span Ability: Capable of Focused Attention Memory Description: Grossly Intact Patient Reliability: Reliable Historian Fund of knowledge: Yes abstraction ability, Yes aware of current events Intelligence Estimate: Average Judgment: Limited Insight: Partial
[2018-03-08] MEDS: Acetaminophen 325 MG TABLET PO PRN (20:21)
[2018-03-09 09:12] VITALS: BP 129/89
[2018-03-09] MEDS: Sennosides/Docusate Sodium TABLET PO SCH (09:27)
[2018-03-09] MEDS: clonazePAM 1 MG TABLET PO SCH (09:28)
[2018-03-09] MEDS: Gabapentin 400 MG CAPSULE PO SCH (09:28)
[2018-03-09] MEDS: Venlafaxine XR (24 HR) 75 MG CAP.ER.24H PO SCH (09:28)
[2018-03-09] MEDS: Nicotine 21 MG PATCH.TD24 TD SCH (09:30)
--- NOTE | 2018-03-09 11:19 | Discharge Summary ---
Date of Encounter: 03/09/18 Time of Encounter: 11:06 Diagnosis - Discharge Diagnosis (1) Major depressive disorder, recurrent severe without psychotic features Status: Acute (2) Cocaine abuse Status: Chronic Medications - Discharge Medications Prescriptions: Gabapentin [Neurontin] 800 mg PO TID #120 capsule Quetiapine Fumarate [Seroquel] 300 mg PO HS #90 tablet Sennosides/Docusate Sodium [Senna Plus] 1 each PO BID #60 tablet Venlafaxine XR (24 HR) [Effexor XR] 225 mg PO DAILY #90 cap.er.24h Lansoprazole [Prevacid] 30 mg PO DAILY 05/27/17 [History] clonazePAM [Klonopin] 1 mg PO TID 05/27/17 [History] Docusate Sodium [Dok] 100 mg PO DAILY 02/27/18 [History] Venlafaxine XR (24 HR) [Effexor XR] 75 mg PO DAILY 02/27/18 [History] Gabapentin [Neurontin] 800 mg PO TID #120 capsule 03/09/18 [Rx] Quetiapine Fumarate [Seroquel] 300 mg PO HS #90 tablet 03/09/18 [Rx] Sennosides/Docusate Sodium [Senna Plus] 1 each PO BID #60 tablet 03/09/18 [Rx] Venlafaxine XR (24 HR) [Effexor XR] 225 mg PO DAILY #90 cap.er.24h 03/09/18 [Rx] hydrOXYzine pamoate [HydrOXYzine Pamoate] 25 mg PO TID PRN capsule 03/09/18 [Rx ] 3 Allergy/AdvReac Type Severity Reaction Status Date / Time ciprofloxacin [From Cipro] Allergy Hives Verified 05/27/17 16:39 Penicillins [PCN] Allergy Nausea Verified 05/27/17 16:39 Provider Date of admission: 02/26/18 22:30 Primary care physician: PCP NONE Consults: 02/27/18 09:00 Consult to Pastoral Services [CONS] Routine Comment: Discharging clinician: Zeke Beltran Psychiatry Exam - Constitutional Vitals: Temp Pulse Resp BP Pulse Ox 97.9 F 77 16 129/89 96 03/09/18 09:00 03/09/18 09:00 03/09/18 09:00 03/09/18 09:00 02/26/18 17:40 General appearance: age & developmentally appropriate, well-groomed, well- nourished - Musculoskeletal Gait: normal Station: relaxed Strength & Tone: normal for patient - Psychiatric Patient Orientation: Yes Person, Yes Time, Yes Place Level of alertness: Alert Behavior: calm, cooperative, guarded Psychomotor activity: Normal Eye Contact: Maintains Eye Contact Mood Description: Euthymic/stable Affect description: congruent with mood, full range Speech Volume: Normal Speech pattern: normal rate, normal rhythm, normal tone, fluent, spontaneous Language & Vocabulary: consistent with education Thought Process: Linear, Goal Oriented Thought Content: No Suicidal ideation, No Homicidal ideation, No Overt delusions Perceptual Disturbances: No Auditory hallucinations, No Visual hallucinations Attention Span Ability: Capable of Focused Attention Memory Description: Grossly Intact Patient Reliability: Reliable Historian Fund of knowledge: Yes abstraction ability, Yes aware of current events Intelligence Estimate: Average Judgment: Limited Insight: Partial Hospital Course Hospital course: Mr. Alvarez is a 52 year old male admitted for depression and cocaine abuse and suicidal ideation. For details of admission please see H&P On the units patient was focused on chronic pain and complaining that medication were not effective his medication was reviewed with and he was given Seroquel at night his Effexor was increased to 25 mg daily and gabapentin was added for increased and continue also on the Klonopin over time patient reported improvement he was able to participate in some activities and denies suicidal ideation but she cannot he was not showing motivation to be active with to participate in activities. Discharge planning was completed by social work patient was educated about's living was pain and continuing activity in a limited capacity if his pain interfere with activity patient tell me that he was treated was on day and not doing any physical activity chlorides he was educated about activities . On discharge patient was medically stable, tolerating medication without side effects, nonsuicidal and future oriented. He is discharged in stable condition. - Time Spent with Patient Total time spent providing and/or coordinating discharge services: Less than 30 minutes Assessment and Plan - Patient/Caregiver Discharge Instructions Activity: resume usual activities as tolerated Diet: regular diet - Follow up Plan Follow up with: [facility] [Outside] - 03/10/18 3:00 pm (The above appointment is with Martha Norris to open your case as a client so you may receive intensive case management services. Please bring insurance card and arrive 15 minutes early for paperwork. You must bring your insurance card with you in order to be seen.) Billy Fajardo Ryan [facility] [Outside] - 03/09/18 1:00 pm (The above appointment is with Gracie for outpatient substance abuse counseling services. You will also see Tao Gomez for outpatient mental health counseling services on at 10:00am.) Manda Hollins [Advanced Practice Nurse] - 03/09/18 2:00 pm (The above appointment is with Manda Hollins for primary health care and medication management services. Your needs for Vivitrol treatment may be assessed as well. ) Functional capacity at discharge: independent ambulation Overall status at discharge: Stable Disposition: Home, Self-Care Quality - Multiple Antipsychotics Patient discharged on 2 or more antipsychotic medications: No Procedures - Procedures Procedures: Medication Management, Crisis Stabilization, Supportive Therapy, Group Therapy, Psychoeducational Therapy
== END 2018-03-09 12:05 | disposition home or self-care (01) | DRG 751 ==
LOC: EMEROO 17:37 → SUATTDRO 22:30 → 1ANU 22:30
PROVIDERS: ADMIT Psychiatry & Neurology Psychiatry; ATTEND Psychiatry & Neurology Psychiatry

== ENCOUNTER 2018-03-23 17:24 | Inpatient (IN) ==
--- NOTE | 2018-03-23 17:29 | Emergency Department Note ---
Disposition Clinical Impression: Suicide attempt Depression Qualifiers: Depression Type: unspecified Qualified Code(s): F32.9 - Major depressive disorder, single episode, unspecified Disposition: Admitted As Inpatient Time of Disposition: 22:39 Psych HPI - General Stated Complaint: 1A Time Seen by Provider: 03/23/18 17:27 Nursing Notes Reviewed: Yes Vital Signs Reviewed: Yes - History of Present Illness HPI Narrative: 67-year-old male presents emergency Department with chief complaint of depression. Patient states that he took 70 100 mg tablets of Seroquel on Wednesday. Stated that he was out of his mind and got arrested twice by police. Patient does not have suicidal ideations at this time, however, he did say try to kill himself on Wednesday. Patient denies taking any other illicit substance. He denies any chest pain, pressure, tightness. Denies any fevers, chills, cough , shortness of breath. States that he feels normal and back to baseline other than him being severely depressed. - Related Data Home Medications Medication Instructions Recorded Confirmed Lansoprazole [Prevacid] 30 mg PO DAILY 05/27/17 03/23/18 clonazePAM [Klonopin] 1 mg PO TID 05/27/17 03/23/18 Docusate Sodium [Dok] 100 mg PO DAILY 02/27/18 03/23/18 Previous Rx's Medication Instructions Recorded Gabapentin [Neurontin] 800 mg PO TID #120 capsule 03/09/18 Quetiapine Fumarate [Seroquel] 300 mg PO HS #90 tablet 03/09/18 Sennosides/Docusate Sodium [Senna 1 each PO BID #60 tablet 03/09/18 Plus] Venlafaxine XR (24 HR) [Effexor XR] 225 mg PO DAILY #90 cap.er.24h 03/09/18 Allergies Allergy/AdvReac Type Severity Reaction Status Date / Time ciprofloxacin [From Cipro] Allergy Hives Verified 03/23/18 22:14 Penicillins [PCN] Allergy Nausea Verified 03/23/18 22:14 Past Medical History - Past Medical History Medical history: Reports: no medical history, arthritis, GERD Surgical history: Reports: non-contributory Psychiatric history: Reports: bipolar, depression, previous psychiatric hospitalization - Social History Smoking Status: Current every day smoker Smokeless Tobacco Status: No Alcohol use: Reports: rarely Drug use: Reports: cocaine, opiates, methamphetamine, IV Drug Use, prescription drug abuse Course Vital Signs Temperature 98.1 F 03/23/18 18:18 Pulse Rate 87 03/23/18 18:18 Respiratory Rate 15 03/23/18 18:18 Blood Pressure 135/88 03/23/18 18:18 O2 Sat by Pulse Oximetry 99 03/23/18 18:18 Temperature 98.1 F 03/23/18 18:18 Pulse Rate 87 03/23/18 18:18 Respiratory Rate 15 03/23/18 18:18 Blood Pressure 135/88 03/23/18 18:18 O2 Sat by Pulse Oximetry 99 03/23/18 18:18 Oxygen Delivery Oxygen Delivery Room Air Psych - MDM Narrative Medical decision making narrative: 67-year-old male presents emergency department with concern for recent suicide attempt on Wednesday. Patient states he has taken 7100 mg tablets of Seroquel. Patient is currently medically stable not in any acute distress. We will obtain EKG. Did not reveal any evidence of any QT prolongation, ischemia, tall R-wave in aVR, normal QRS, no evidence of right axis deviation that would be concerning for an acute toxicity. Patient had a leukocytosis of 17.5. At this time, do not suspect any signs of significant infection. Most likely secondary to acute phase reactant dealing with his current psychiatric condition. I have spoken with poison control. They recommended to not do anything at this time as EKG did not have any changes, and he was given an amp with stable not in any acute distress. Cranial function was normal. Patient does not have elevated hepatic transaminases. The psychiatric team was called today to evaluate the patient. They agree to accept the patient for admission for further psychiatric management and evaluation. - Lab Data Result diagrams: 03/23/18 17:28 03/23/18 17:28 Lab Results 03/23/18 03/23/18 03/23/18 Range/Units 17:28 17:28 18:21 WBC 17.5 H (4.3-11.1) K/mcL RBC 4.77 (4.19-5.50) M/mcL Hgb 13.7 (12.9-16.9) g/dL Hct 41.4 (37.5-50.1) % MCV 86.8 (83.0-100.0) fL MCH 28.7 (28.0-33.3) pg MCHC 33.1 (31.6-35.5) g/dL RDW 13.6 (11.5-14.5) % Plt Count 368 (140-400) K/mcL MPV 9.6 (9.4-12.4) fL Immature Gran % 0.3 (0-4) % Seg Neutrophils % 74.8 % Lymphocytes % 18.3 % Monocytes % 5.1 % Eosinophils % 1.4 % Basophils % 0.1 % Neutrophils # 13.1 H (1.6-8.9) K/mcL Lymphocytes # 3.2 (0.6-4.6) K/mcL Monocytes # 0.9 (0.0-1.3) K/mcL Eosinophils # 0.2 (0.0-0.6) K/mcL Basophils # 0.0 (0.0-0.2) K/mcL Sodium 139 (136-145) mEq/L Potassium 3.6 (3.5-5.1) mEq/L Chloride 107 (98-107) mEq/L Carbon Dioxide 23 (23-29) mEq/L BUN 16 (6-20) mg/dL Creatinine 1.18 (0.70-1.30) mg/dL Est GFR ( Amer) > 60 (> 60) Est GFR (Non-Af Amer) > 60 (> 60) BUN/Creatinine Ratio 14 (6-26) Glucose 119 H (70-105) mg/dL Calculated Osmolality 290 (280-300) Calcium 9.4 (8.6-10.3) mg/dL Total Bilirubin 0.5 (0.3-1.0) mg/dL Direct Bilirubin 0.1 (0.0-0.2) mg/dL Indirect Bilirubin 0.4 (0.0-1.2) mg/dL AST 26 (13-39) Units/L ALT 7 (7-52) Units/L Alkaline Phosphatase 89 (34-104) Units/L Serum Total Protein 7.4 (6.4-8.9) g/dL Albumin 4.6 (3.5-5.7) g/dL Globulin 2.8 (2.4-3.5) g/dL Albumin/Globulin Ratio 1.6 (1.1-2.2) Urine Color Dark Yellow (Yellow) Urine Clarity Clear (Clear) Urine pH 5.0 (5.0-8.0) pH Units Ur Specific [place] 1.028 H (1.010-1.025) Urine Protein Trace (Neg-Trace) mg/dL Urine Glucose (UA) Normal (Normal) mg/dL Urine Ketones Trace H (Negative) mg/dL Urine Blood Negative (Negative) Urine Nitrite Negative (Negative) Urine Bilirubin Small H (Negative) Urine Urobilinogen Normal (Normal) mg/dL Ur Leukocyte Esterase Negative (Negative) Urine Microscopic RBC 5-15 H (0-3) per hpf Urine Microscopic WBC 3-5 H (0-3) per hpf Ur Squamous Epith Cells Many H (None-Few) per lpf Urine Bacteria None Seen (None-Few) per hpf Hyaline Casts Few (None-Few) per lpf Salicylates < 2.5 L (15.0-30.0) mg/dL Urine Opiates Screen (Wgnzkc=889) ng/mL Acetaminophen < 10 L (10-20) mcg/mL Ur Barbiturates Screen (Xkclib=882) ng/mL Ur Phencyclidine Scrn (Cutoff=25) ng/mL Ur Amphetamines Screen (Sdxuao=7290) ng/mL U Benzodiazepines Scrn (Jiaird=560) ng/mL Urine Cocaine Screen (Cutoff= 300) ng/mL U Marijuana (THC) Screen (Cutoff = 50) ng/mL Ur Drug Screen Interp Ethyl Alcohol < 10 (Less than 10) mg/dL 03/23/18 Range/Units 18:21 WBC (4.3-11.1) K/mcL RBC (4.19-5.50) M/mcL Hgb (12.9-16.9) g/dL Hct (37.5-50.1) % MCV (83.0-100.0) fL MCH (28.0-33.3) pg MCHC (31.6-35.5) g/dL RDW (11.5-14.5) % Plt Count (140-400) K/mcL MPV (9.4-12.4) fL Immature Gran % (0-4) % Seg Neutrophils % % Lymphocytes % % Monocytes % % Eosinophils % % Basophils % % Neutrophils # (1.6-8.9) K/mcL Lymphocytes # (0.6-4.6) K/mcL Monocytes # (0.0-1.3) K/mcL Eosinophils # (0.0-0.6) K/mcL Basophils # (0.0-0.2) K/mcL Sodium (136-145) mEq/L Potassium (3.5-5.1) mEq/L Chloride (98-107) mEq/L Carbon Dioxide (23-29) mEq/L BUN (6-20) mg/dL Creatinine (0.70-1.30) mg/dL Est GFR ( Amer) (> 60) Est GFR (Non-Af Amer) (> 60) BUN/Creatinine Ratio (6-26) Glucose (70-105) mg/dL Calculated Osmolality (280-300) Calcium (8.6-10.3) mg/dL Total Bilirubin (0.3-1.0) mg/dL Direct Bilirubin (0.0-0.2) mg/dL Indirect Bilirubin (0.0-1.2) mg/dL AST (13-39) Units/L ALT (7-52) Units/L Alkaline Phosphatase (34-104) Units/L Serum Total Protein (6.4-8.9) g/dL Albumin (3.5-5.7) g/dL Globulin (2.4-3.5) g/dL Albumin/Globulin Ratio (1.1-2.2) Urine Color (Yellow) Urine Clarity (Clear) Urine pH (5.0-8.0) pH Units Ur Specific [place] (1.010-1.025) Urine Protein (Neg-Trace) mg/dL Urine Glucose (UA) (Normal) mg/dL Urine Ketones (Negative) mg/dL Urine Blood (Negative) Urine Nitrite (Negative) Urine Bilirubin (Negative) Urine Urobilinogen (Normal) mg/dL Ur Leukocyte Esterase (Negative) Urine Microscopic RBC (0-3) per hpf Urine Microscopic WBC (0-3) per hpf Ur Squamous Epith Cells (None-Few) per lpf Urine Bacteria (None-Few) per hpf Hyaline Casts (None-Few) per lpf Salicylates (15.0-30.0) mg/dL Urine Opiates Screen Negative (Qrbmqr=965) ng/mL Acetaminophen (10-20) mcg/mL Ur Barbiturates Screen Negative (Mhlwtf=077) ng/mL Ur Phencyclidine Scrn Negative (Cutoff=25) ng/mL Ur Amphetamines Screen Negative (Lsqwny=8210) ng/mL U Benzodiazepines Scrn Positive H (Uzzljy=709) ng/mL Urine Cocaine Screen Positive H (Cutoff= 300) ng/mL U Marijuana (THC) Screen Negative (Cutoff = 50) ng/mL Ur Drug Screen Interp See Below Ethyl Alcohol (Less than 10) mg/dL - EKG Data EKG attestation: Yes I reviewed and interpreted this EKG. EKG results narrative: 18:10 Ventricular rate 75 bpm, MT interval 155 ms, QRS duration 84 ms, QT 338 ms, QTC 367 ms, normal axis. Sinus rhythm with a ventricular rate 75 beats for minute. No ischemic ST changes on this EKG. No evidence of QT prolongation, tall R-wave in aVR, new right axis deviation. Psychiatric Medical Clearance - Medical Clearance Checklist Medical History: No Social History Section defined Current Vitals: Last Vital Signs Temp 98.1 F 03/23/18 18:18 Pulse 87 03/23/18 18:18 Resp 15 03/23/18 18:18 BP 135/88 03/23/18 18:18 Pulse Ox 99 03/23/18 18:18 Psychiatric Lab Panel: Drug Levels and Toxicity 03/23/18 03/23/18 17:28 18:21 Urine Opiates Screen Negative Acetaminophen < 10 L Ur Barbiturates Screen Negative Ur Phencyclidine Scrn Negative Ur Amphetamines Screen Negative U Benzodiazepines Scrn Positive H Urine Cocaine Screen Positive H U Marijuana (THC) Screen Negative Ethyl Alcohol < 10 Abnormal Labs: Abnormal lab results WBC 17.5 K/mcL (4.3-11.1) H 03/23/18 17:28 Neutrophils # 13.1 K/mcL (1.6-8.9) H 03/23/18 17:28 Glucose 119 mg/dL (70-105) H 03/23/18 17:28 Ur Specific [place] 1.028 (1.010-1.025) H 03/23/18 18:21 Urine Ketones Trace mg/dL (Negative) H 03/23/18 18:21 Urine Bilirubin Small (Negative) H 03/23/18 18:21 Urine Microscopic RBC 5-15 per hpf (0-3) H 03/23/18 18:21 Urine Microscopic WBC 3-5 per hpf (0-3) H 03/23/18 18:21 Ur Squamous Epith Cells Many per lpf (None-Few) H 03/23/18 18:21 Salicylates < 2.5 mg/dL (15.0-30.0) L 03/23/18 17:28 Acetaminophen < 10 mcg/mL (10-20) L 03/23/18 17:28 U Benzodiazepines Scrn Positive ng/mL (Nskzxu=325) H 03/23/18 18:21 Urine Cocaine Screen Positive ng/mL (Cutoff= 300) H 03/23/18 18:21 Attestation Statement - Attestation Attestation: Patient was seen with resident physician. I reviewed the history, physical, assessment and plan, and agree with the findings. I also personally evaluated this patient and had [id number] time with this patient. 52-year-old male presents emergency Department with suicide attempt Seroquel ingestion. Patient thinks that he took about 70 cervical tabs on Wednesday. He is not sure the day because cervical minimal little bit loopy. He was picked up by the police several times for attempting to get into other people's cars. He says he feels okay today but still suicidal. He said multiple attempts in the past. His been the one a multiple times in the past. Denies other complaints at this time. Review systems as above remainder negative. Physical exam vital signs are stable. ENT is unremarkable. Heart regular rhythm and rate. Lungs clear. Abdomen soft nontender. Extremities unremarkable. Neurologically intact. Skin no rashes. Psych depressed little bit of anxiety. We discussed the overdose attempt with poison control to get a suggestions that they had. EKG is largely unremarkable. Labs are okay. We will contact one a to have them do an evaluation and determine final disposition. He is placed on a non-voluntary admission status based on the severity of his attempt. Hemodynamically the patient did well throughout his stay. He appeared in no acute distress of any point. One a did evaluate the patient felt he required admission. Agree with this assessment. Patient will be admitted to the psychiatric department for additional treatment and care. I agree with resident physician assessment and plan.
[2018-03-23 18:01] LABS: Basophils % 0.1 %; Eosinophils # 0.2 K/mcL (0.0-0.6); Eosinophils % 1.4 %; Hematocrit 41.4 % (37.5-50.1); Hemoglobin 13.7 g/dL (12.9-16.9); Immature Granulocytes % 0.3 % (0-4); Lymphocytes # 3.2 K/mcL (0.6-4.6); Lymphocytes % 18.3 %; Mean Corpuscular HGB Conc 33.1 g/dL (31.6-35.5); Mean Corpuscular Hemoglobin 28.7 pg (28.0-33.3); Mean Corpuscular Volume 86.8 fL (83.0-100.0); Mean Platelet Volume 9.6 fL (9.4-12.4); Monocytes # 0.9 K/mcL (0.0-1.3); Monocytes % 5.1 %; Neutrophils # 13.1 K/mcL (1.6-8.9); Platelet Count 368 K/mcL (140-400); Red Blood Count 4.77 M/mcL (4.19-5.50); Red Cell Distribution Width 13.6 % (11.5-14.5); Segmented Neutrophils % 74.8 %
[2018-03-23 18:20] LABS: Acetaminophen < 10 mcg/mL (10-20); BUN/Creatinine Ratio 14 (6-26); Blood Urea Nitrogen 16 mg/dL (6-20); Calcium 9.4 mg/dL (8.6-10.3); Carbon Dioxide 23 mEq/L (23-29); Chloride 107 mEq/L (98-107); Ethanol < 10 mg/dL (Less than 10); Glucose 119 mg/dL (70-105); Osmolality,Calculated 290 (280-300); Potassium 3.6 mEq/L (3.5-5.1); Salicylate < 2.5 mg/dL (15.0-30.0); Sodium 139 mEq/L (136-145); eGFR For Non-African Americans > 60 (> 60)
[2018-03-23 18:31] LABS: Bilirubin,Urine Small (Negative); Blood,Urine Negative (Negative); Clarity,Urine Clear (Clear); Color,Urine Dark Yellow (Yellow); Glucose,Urine (UA) Normal (Normal); Ketones,Urine Trace mg/dL (Negative); Leukocyte Esterase,Urine Negative (Negative); Nitrite,Urine Negative (Negative); Protein,Urine Trace mg/dL (Neg-Trace); Specific Gravity,Urine 1.028 (1.010-1.025); Urobilinogen,Urine Normal (Normal)
[2018-03-23 18:34] LABS: Bacteria,Urine None Seen per hpf (None-Few); Hyaline Casts,Urine Few per lpf (None-Few); Squamous Epithelial Cell,Urine Many per lpf (None-Few)
[2018-03-23 18:54] LABS: Alanine Aminotransferase 7 Units/L (7-52); Albumin 4.6 g/dL (3.5-5.7); Albumin/Globulin Ratio 1.6 (1.1-2.2); Alkaline Phosphatase 89 Units/L (34-104); Aspartate Amino Transferase 26 Units/L (13-39); Bilirubin,Direct 0.1 mg/dL (0.0-0.2); Bilirubin,Indirect 0.4 mg/dL (0.0-1.2); Bilirubin,Total 0.5 mg/dL (0.3-1.0); Globulin 2.8 g/dL (2.4-3.5); Total Protein 7.4 g/dL (6.4-8.9)
[2018-03-23 18:59] LABS: Amphetamine Screen,Urine Negative ng/mL (Cutoff=1000); Barbiturate Screen,Urine Negative ng/mL (Cutoff=200); Benzodiazepines Screen,Urine Positive ng/mL (Cutoff=200); Cannabinoid Screen,Urine Negative ng/mL (Cutoff = 50); Cocaine Screen,Urine Positive ng/mL (Cutoff= 300); Opiate Screen,Urine Negative ng/mL (Cutoff=300); Phencyclidine Screen,Urine Negative ng/mL (Cutoff=25)
[2018-03-23] MEDS ORDERED: *HR* LORazepam 1 MG TABLET PO PRN (22:29)
[2018-03-23] MEDS ORDERED: Haloperidol Lactate 5 MG/ML VIAL IM PRN (22:29)
[2018-03-23] MEDS ORDERED: Mag Hydrox/Al Hydrox/Simeth 30 ML UDC PO PRN (22:29)
[2018-03-23] MEDS ORDERED: MOM Conc 10 ML UD.LIQ PO PRN (22:29)
[2018-03-23] MEDS ORDERED: *HR* LORazepam 2 MG/ML VIAL IM PRN (22:29)
[2018-03-24] MEDS: traZODone 50 MG TABLET PO PRN ×2 (00:04→21:22)
[2018-03-24] MEDS: Nicotine 21 MG PATCH.TD24 TD SCH (14:48)
--- NOTE | 2018-03-24 16:21 | Psychiatry History & Physical ---
Date of Encounter: 03/24/18 Time of Encounter: 16:00 History of Present Illness Patient Stated Chief Complaint: I took an overdose of Quetiapine Medicare Admission Attestation: For traditional Medicare patients the provided hospital inpatient services are reasonable and necessary and in the case of services not specified as inpatient -only under 42 CFR 419.22 (n), that they are appropriately provided as inpatient services in accordance 42 CFR 412.3. For Critical Access Hospital the patient may reasonably be expected to be discharged or transferred to a hospital within 96 hours after admission to the Critical Access Hospital. Admitted From: Emergency Dept Plans for Post Hospital Care: Home History of Present Illness: Mr. Alvarez is a 52 year old male If complaint I took a lot of Seroquel. I thought I was going to I did not know what was going to happen. Then I got arrested. History of present illness the patient cannot recall some of the events of the last hospitalization. He was discharged and went home. He did not show up for all of his appointments. He. He took an overdose of quetiapine. He also used a cane in this interval. The patient has a history of opiate abuse. He reports that he went to see his provider and asked for a referral for back surgery but was told that he did not need one. Then he called the clinic and was told that he did not need a referral. The patient was prescribed steroids for his back but did not seem to get that filled. The patient left the unit and did not have clonazepam and was out of it several days he has been out of clonazepam throughout this period of time he cannot explain the benzodiazepine in his urine but quetiapine and high doses might give a false positive. In the the patient was confused as to whether he was on Cymbalta or Effexor but I had several discussions with him last hospitalization and he was increased to the maximum dose of Effexor 225 mg. Nonetheless he still thinks that he might of been on Cymbalta today he is complaining about constipation. He reports back pain he wants to be in his own room. He says that he might be suicidal. He says these done very bad things in the past and does not want to face up to the and this might be why took the overdose. He asked about this to charges and whether he would be an GR I. But the patient had chosen to take the overdose of quetiapine. He reported that he had 60 or 70 pills and that this led him on a spree. The reader is referred to the emergency room note. The patient will be admitted and remain under involuntary hold. Further determination about his lethality is necessary as probate may be considered outpatient commitment may be considered. The patient's been noncompliant with almost all treatment recommendations at the time of discharge. He has a sling cooperative attitude about his current treatment. Because of our concerns about the toxicity of previous drugs we will begin Cymbalta 30 mg per day Prolixin a medicine used in tertiary level pain and we will revisit and state his other medical medicines. This patient may continue to be noncompliant and fluphenazine decanoate may be considered Past Med Surg Social Fam HX - Past Medical History Medical history: no medical history, arthritis, GERD - Past Surgical History Surgical History: non-contributory - Social History Smoking Status: Current every day smoker Smokeless Tobacco Status: No Alcohol use: rarely Drug use: cocaine, opiates, methamphetamine, IV Drug Use, prescription drug abuse - Family History Father Adopted: No Family Member Ethnicity: Non- Living Status: Still Living Hx Family Cardiac Disorders: Yes (Heart arrythmias) Hx Family Cancer: Yes (Bladder cancer) Medications & Allergies Lansoprazole [Prevacid] 30 mg PO DAILY 05/27/17 [History] clonazePAM [Klonopin] 1 mg PO TID 05/27/17 [History] Docusate Sodium [Dok] 100 mg PO DAILY 02/27/18 [History] Gabapentin [Neurontin] 800 mg PO TID #120 capsule 03/09/18 [Rx] Quetiapine Fumarate [Seroquel] 300 mg PO HS #90 tablet 03/09/18 [Rx] Sennosides/Docusate Sodium [Senna Plus] 1 each PO BID #60 tablet 03/09/18 [Rx] Venlafaxine XR (24 HR) [Effexor XR] 225 mg PO DAILY #90 cap.er.24h 03/09/18 [Rx] 3 Allergy/AdvReac Type Severity Reaction Status Date / Time ciprofloxacin [From Cipro] Allergy Hives Verified 03/23/18 22:14 Penicillins [PCN] Allergy Nausea Verified 03/23/18 22:14 Exam - HEENT Head exam IM: Present: atraumatic, normal inspection, normocephalic Eye exam IM: Present: EOMI, normal appearance ENT exam IM: Present: mucous membranes dry - Neurological Neurological exam: Present: CN II-XII intact - Skin Skin exam IM: Present: warm - Constitutional Vitals: Temp Pulse Resp BP Pulse Ox 98 F 69 18 138/90 99 03/24/18 09:00 03/24/18 09:00 03/24/18 09:00 03/24/18 09:00 03/23/18 18:18 General appearance: age & developmentally appropriate - Musculoskeletal Gait: normal Station: other Strength & Tone: normal for patient - Psychiatric Patient Orientation: Yes Person, Yes Time, Yes Place Level of alertness: Alert Behavior: calm Psychomotor activity: Normal Eye Contact: Maintains Eye Contact Mood Description: Depressed Affect description: dysphoric Speech Volume: Normal Speech pattern: normal rate Language & Vocabulary: consistent with education Thought Process: Intact Thought Content: Yes Suicidal ideation Perceptual Disturbances: Yes Reacting to internal stimuli Attention Span Ability: Capable of Focused Attention Memory Description: Grossly Intact Patient Reliability: Not Reliable Historian Intelligence Estimate: Below Average Judgment: Limited Insight: Minimal Results - Labs Labs: Laboratory Last Values WBC 17.5 K/mcL (4.3-11.1) H 03/23/18 17:28 RBC 4.77 M/mcL (4.19-5.50) 03/23/18 17:28 Hgb 13.7 g/dL (12.9-16.9) 03/23/18 17:28 Hct 41.4 % (37.5-50.1) 03/23/18 17:28 MCV 86.8 fL (83.0-100.0) 03/23/18 17:28 MCH 28.7 pg (28.0-33.3) 03/23/18 17:28 MCHC 33.1 g/dL (31.6-35.5) 03/23/18 17:28 RDW 13.6 % (11.5-14.5) 03/23/18 17:28 Plt Count 368 K/mcL (140-400) 03/23/18 17:28 MPV 9.6 fL (9.4-12.4) 03/23/18 17:28 Immature Gran % 0.3 % (0-4) 03/23/18 17:28 Seg Neutrophils % 74.8 % 03/23/18 17:28 Lymphocytes % 18.3 % 03/23/18 17:28 Monocytes % 5.1 % 03/23/18 17:28 Eosinophils % 1.4 % 03/23/18 17:28 Basophils % 0.1 % 03/23/18 17:28 Neutrophils # 13.1 K/mcL (1.6-8.9) H 03/23/18 17:28 Lymphocytes # 3.2 K/mcL (0.6-4.6) 03/23/18 17:28 Monocytes # 0.9 K/mcL (0.0-1.3) 03/23/18 17:28 Eosinophils # 0.2 K/mcL (0.0-0.6) 03/23/18 17:28 Basophils # 0.0 K/mcL (0.0-0.2) 03/23/18 17:28 Sodium 139 mEq/L (136-145) 03/23/18 17:28 Potassium 3.6 mEq/L (3.5-5.1) 03/23/18 17:28 Chloride 107 mEq/L (98-107) 03/23/18 17:28 Carbon Dioxide 23 mEq/L (23-29) 03/23/18 17:28 BUN 16 mg/dL (6-20) 03/23/18 17:28 Creatinine 1.18 mg/dL (0.70-1.30) 03/23/18 17:28 Est GFR ( Amer) > 60 (> 60) 03/23/18 17:28 Est GFR (Non-Af Amer) > 60 (> 60) 03/23/18 17:28 BUN/Creatinine Ratio 14 (6-26) 03/23/18 17:28 Glucose 119 mg/dL (70-105) H 03/23/18 17:28 Calculated Osmolality 290 (280-300) 03/23/18 17:28 Calcium 9.4 mg/dL (8.6-10.3) 03/23/18 17:28 Total Bilirubin 0.5 mg/dL (0.3-1.0) 03/23/18 17:28 Direct Bilirubin 0.1 mg/dL (0.0-0.2) 03/23/18 17:28 Indirect Bilirubin 0.4 mg/dL (0.0-1.2) 03/23/18 17:28 AST 26 Units/L (13-39) 03/23/18 17:28 ALT 7 Units/L (7-52) 03/23/18 17:28 Alkaline Phosphatase 89 Units/L (34-104) 03/23/18 17:28 Serum Total Protein 7.4 g/dL (6.4-8.9) 03/23/18 17:28 Albumin 4.6 g/dL (3.5-5.7) 03/23/18 17: Globulin 2.8 g/dL (2.4-3.5) 03/23/18 17: Albumin/Globulin Ratio 1.6 (1.1-2.2) 03/23/18 17:28 Urine Color Dark Yellow (Yellow) 03/23/18 18: Urine Clarity Clear (Clear) 03/23/18 18: Urine pH 5.0 pH Units (5.0-8.0) 03/23/18 18: Ur Specific [place] 1.028 (1.010-1.025) H 03/23/18 18:21 Urine Protein Trace mg/dL (Neg-Trace) 03/23/18 18:21 Urine Glucose (UA) Normal mg/dL (Normal) 03/23/18 18:21 Urine Ketones Trace mg/dL (Negative) H 03/23/18 18:21 Urine Blood Negative (Negative) 03/23/18 18:21 Urine Nitrite Negative (Negative) 03/23/18 18:21 Urine Bilirubin Small (Negative) H 03/23/18 18:21 Urine Urobilinogen Normal mg/dL (Normal) 03/23/18 18:21 Ur Leukocyte Esterase Negative (Negative) 03/23/18 18:21 Urine Microscopic RBC 5-15 per hpf (0-3) H 03/23/18 18:21 Urine Microscopic WBC 3-5 per hpf (0-3) H 03/23/18 18:21 Ur Squamous Epith Cells Many per lpf (None-Few) H 03/23/18 18:21 Urine Bacteria None Seen per hpf (None-Few) 03/23/18 18:21 Hyaline Casts Few per lpf (None-Few) 03/23/18 18:21 Salicylates < 2.5 mg/dL (15.0-30.0) L 08/01/18 17:28 Urine Opiates Screen Negative ng/mL (Bftccx=368) 03/23/18 18:21 Acetaminophen < 10 mcg/mL (10-20) L 03/23/18 17:28 Ur Barbiturates Screen Negative ng/mL (Nigjqs=018) 03/23/18 18:21 Ur Phencyclidine Scrn Negative ng/mL (Cutoff=25) 03/23/18 18:21 Ur Amphetamines Screen Negative ng/mL (Eyivyy=8108) 03/23/18 18:21 U Benzodiazepines Scrn Positive ng/mL (Jhoboc=223) H 03/23/18 18:21 Urine Cocaine Screen Positive ng/mL (Cutoff= 300) H 03/23/18 18:21 U Marijuana (THC) Screen Negative ng/mL (Cutoff = 50) 03/23/18 18:21 Ur Drug Screen Interp See Below 03/23/18 18:21 Ethyl Alcohol < 10 mg/dL (Less than 10) 03/23/18 17:28 Assessment and Plan (1) Patient's noncompliance with other medical treatment and regimen Current visit: Yes Status: Acute Plan: Admit inpatient for safety and stabilization, Close observation, Suicide Precautions per unit protocol Risks, benefits, side effects, alternatives discussed w/pt: Yes Patient agreeable to treatment: Yes Plans for Post Hospital Care: Home (2) Cocaine dependence, uncomplicated Current visit: Yes Status: Acute Plan: Admit inpatient for safety and stabilization, Encourage participation in unit milieu, Monitor sleep, Monitor appetite Risks, benefits, side effects, alternatives discussed w/pt: Yes Patient agreeable to treatment: Yes Plans for Post Hospital Care: Home (3) Major depressive disorder, recurrent severe without psychotic features Current visit: No Status: Acute Plan: Admit inpatient for safety and stabilization, Close observation, Suicide Precautions per unit protocol, Encourage participation in unit milieu Risks, benefits, side effects, alternatives discussed w/pt: Yes Patient agreeable to treatment: Yes Plans for Post Hospital Care: Home (4) Suicidal ideation Current visit: No Status: Acute Plan: Admit inpatient for safety and stabilization, Secure weapons Risks, benefits, side effects, alternatives discussed w/pt: Yes Patient agreeable to treatment: Yes Plans for Post Hospital Care: Home (5) Opiate dependence Current visit: No Status: Chronic Plan: Monitor sleep, Monitor appetite Qualifiers: Substance use status: with opioid-induced mood disorder Qualified Code(s): F11.24 - Opioid dependence with opioid-induced mood disorder
[2018-03-24] MEDS: Sennosides/Docusate Sodium TABLET PO SCH (21:22)
[2018-03-25] MEDS: hydrOXYzine pamoate 25 MG CAPSULE PO PRN ×2 (00:26→21:22)
--- NOTE | 2018-03-25 02:17 | Electrocardiograph Report ---
[address] [place], [place] [address] Test Date: 2018-03-23 Pat Name: Andrade Alvarez Department: 103 Room: 1A23 Gender: M Personal Banking Advisor: EKP : 1965 Requested By: Juan Miguel Uribe Order Number: [id number] Reading MD: Melissa Cotter Measurements Intervals [place] Rate: 75 P: 58 [place]: 155 QRS: 16 QRSD: 84 T: 31 QT: 338 QTc: 367 Interpretive Statements SINUS RHYTHM Electronically Signed On 03-24-2018 16:13:22 EDT by Melissa Cotter
[2018-03-25] MEDS: Nicotine 21 MG PATCH.TD24 TD SCH (08:20)
[2018-03-25] MEDS: Sennosides/Docusate Sodium TABLET PO SCH ×2 (08:21→21:23)
[2018-03-25] MEDS: Ibuprofen 400 MG TABLET PO PRN (10:08)
--- NOTE | 2018-03-25 14:43 | Psychiatry Progress Note ---
Date of Encounter: 03/25/18 Time of Encounter: 14:30 Subjective Interval history: D the patient's 52-year-old white male. Chief complaint I need to get my Prilosec otherwise my stomach. History of present illness the patient remains on a 72 hour hold. The patient has no observed homicidal ideation or suicidal ideation. But keeps saying he might develop this if new roommate is placed in his room. Patient is tolerating Cymbalta and had a unspecified allergic reaction to Prolixin. He was given Vistaril only slept through the night. The patient came to see me and I told him that we would change him over to risperidone as he did not tolerate Prolixin. His Cymbalta was currently at 30 mg. The patient has court hearings on Wednesday and on Wednesday. But the observation of the patient does not reveal significant suicidal behavior Review of Systems Psychiatric: Reports: suicidal ideation Results - Vital Signs Vital Signs: Temp Pulse Resp BP Pulse Ox 97.6 F 73 18 111/84 100 03/25/18 09:00 03/25/18 09:00 03/25/18 09:00 03/25/18 09:00 03/25/18 00:20 Assessment and Plan (1) Patient's noncompliance with other medical treatment and regimen Current visit: Yes Status: Acute Plan: Continue hospitalization, Close observation, Encourage participation in unit milieu Risks, benefits, side effects, alternatives discussed w/pt: Yes Patient agreeable to treatment: Yes (2) Cocaine dependence, uncomplicated Current visit: Yes Status: Acute Plan: Group Therapy, Monitor sleep, Monitor appetite, Secure weapons Risks, benefits, side effects, alternatives discussed w/pt: Yes Patient agreeable to treatment: Yes (3) Major depressive disorder, recurrent severe without psychotic features Current visit: No Status: Acute Plan: Continue hospitalization, Close observation, Family/Supportive other meeting Risks, benefits, side effects, alternatives discussed w/pt: Yes Patient agreeable to treatment: Yes (4) Suicidal ideation Current visit: No Status: Acute Plan: Secure weapons Risks, benefits, side effects, alternatives discussed w/ pt: Yes Patient agreeable to treatment: Yes (5) Opiate dependence Current visit: No Status: Chronic Plan: Monitor sleep, Monitor appetite, Family/Supportive other meeting Risks, benefits, side effects, alternatives discussed w/pt: No Patient agreeable to treatment: No Qualifiers: Substance use status: with opioid-induced mood disorder Qualified Code(s): F11.24 - Opioid dependence with opioid-induced mood disorder Consult Discharge Plan - Plan Referrals: [facility] [Outside] - 03/29/18 10:00 am (The above appointment is with Hoa, your caser up. Please bring photo ID and insurance card.) Billy Fajardo [facility] [Outside] - 03/31/18 1:00 pm (The above appointment is with Gracie for outpatient substance abuse counseling services.) Manda Hollins [Advanced Practice Nurse] - 04/08/18 11:20 am (The above appointment is with Manda Hollins CNP, for medication management services.) Psychiatry Exam - Constitutional Vitals: Temp Pulse Resp BP Pulse Ox 97.6 F 73 18 111/84 100 03/25/18 09:00 03/25/18 09:00 03/25/18 09:00 03/25/18 09:00 03/25/18 00:20 General appearance: age & developmentally appropriate, well-groomed, well- nourished - Musculoskeletal Gait: normal Station: relaxed Strength & Tone: normal for patient - Psychiatric Patient Orientation: Yes Person, Yes Time, Yes Place Level of alertness: Alert Behavior: calm, cooperative Psychomotor activity: Normal Eye Contact: Maintains Eye Contact Mood Description: Euthymic/stable Affect description: congruent with mood, full range Speech Volume: Normal Speech pattern: normal rate, normal rhythm, normal tone, fluent, spontaneous Language & Vocabulary: consistent with education Thought Process: Linear, Goal Oriented Thought Content: Yes Suicidal ideation, No Homicidal ideation, No Overt delusions Perceptual Disturbances: No Auditory hallucinations, No Visual hallucinations Attention Span Ability: Capable of Focused Attention Memory Description: Grossly Intact Fund of knowledge: Yes abstraction ability, Yes aware of current events Intelligence Estimate: Average Judgment: Fair Insight: Partial
[2018-03-25] MEDS: traZODone 50 MG TABLET PO PRN (21:23)
[2018-03-25] MEDS: risperiDONE 0.25 MG TABLET PO SCH (21:24)
[2018-03-26] MEDS: Ibuprofen 400 MG TABLET PO PRN (06:29)
[2018-03-26] MEDS: Sennosides/Docusate Sodium TABLET PO SCH (08:16)
[2018-03-26] MEDS: Nicotine 21 MG PATCH.TD24 TD SCH (08:16)
[2018-03-26] MEDS: risperiDONE 0.25 MG TABLET PO SCH (08:16)
--- NOTE | 2018-03-26 10:09 | Discharge Summary ---
Date of Encounter: 03/26/18 Time of Encounter: 10:07 Diagnosis - Discharge Diagnosis (1) Major depressive disorder, recurrent severe without psychotic features Status: Acute (2) Opiate dependence Status: Chronic Qualifiers: Substance use status: with opioid-induced mood disorder Qualified Code(s): F11.24 - Opioid dependence with opioid-induced mood disorder (3) Patient's noncompliance with other medical treatment and regimen Status: Acute (4) Cocaine dependence, uncomplicated Status: Acute Medications - Discharge Medications Prescriptions: DULoxetine [Cymbalta] 30 mg PO DAILY #14 capsule. Lansoprazole [Prevacid] 30 mg PO DAILY 05/27/17 [History] Docusate Sodium [Dok] 100 mg PO DAILY 02/27/18 [History] Gabapentin [Neurontin] 800 mg PO TID #120 capsule 03/09/18 [Rx] Sennosides/Docusate Sodium [Senna Plus] 1 each PO BID #60 tablet 03/09/18 [Rx] DULoxetine [Cymbalta] 30 mg PO DAILY #14 capsule. 03/26/18 [Rx] 3 Allergy/AdvReac Type Severity Reaction Status Date / Time ciprofloxacin [From Cipro] Allergy Hives Verified 03/23/18 22:14 Penicillins [PCN] Allergy Nausea Verified 03/23/18 22:14 Provider Date of admission: 03/23/18 22:14 Primary care physician: PCP NONE Consults: 03/23/18 23:52 Consult to Pastoral Services [CONS] Routine Comment: Discharging clinician: Balbina Gaines Psychiatry Exam - Constitutional Vitals: Temp Pulse Resp BP Pulse Ox 98.4 F 63 18 168/104 100 03/25/18 19:50 03/25/18 19:50 03/25/18 19:50 03/25/18 19:50 03/25/18 00:20 General appearance: age & developmentally appropriate - Musculoskeletal Gait: normal Station: relaxed Strength & Tone: normal for patient - Psychiatric Patient Orientation: Yes Person, Yes Time, Yes Place Level of alertness: Alert Behavior: calm, cooperative Psychomotor activity: Normal Eye Contact: Maintains Eye Contact Mood Description: Euthymic/stable Affect description: congruent with mood, full range Speech Volume: Normal Speech pattern: normal rate, normal rhythm, normal tone, fluent, spontaneous Language & Vocabulary: consistent with education Thought Process: Linear, Goal Oriented Thought Content: No Suicidal ideation, No Homicidal ideation, No Overt delusions Perceptual Disturbances: No Auditory hallucinations, No Visual hallucinations Attention Span Ability: Capable of Focused Attention Memory Description: Grossly Intact Patient Reliability: Reliable Historian Fund of knowledge: Yes abstraction ability, Yes aware of current events Intelligence Estimate: Average Judgment: Limited Insight: Partial Hospital Course Hospital course: Mr. Alvarez is a 52 year old male who was admitted secondary to SI. Just discharged from [facility] in February. Admitted to nurse he was high within an hour of discharge. Did not allow mother to dispense meds as he had planned. She is agreeable to doing so again if he will let her. Client is addicted to Cocaine but is not seeking a sober lifestyle. Admits he has no responsibilities so getting high is easy for him. Primary issues are [place] II and AOD. Upset he did not have a private room this admission and going from staff member to staff member complaining about it. Arrested for breaking into cars prior to this admission and has court date on Wednesday. Client accepts no responsibility for his actions and states his behavior was secondary to overdosing on Seroquel. Denies SI today. Off the Seroquel. Started on Risperdal but client states he did not like the way it made him feel and requested to stop it as well. Not psychotic so antipsychotics unnecessary if he does not tolerate them. Doing fine with the Cymbalta. Cymbalta may help with some of his pain issues as well. Focused on physical pain and wanting to find a surgeon. States he needs to see PCP for a referral as he would rather "fix" his back as opposed to going through pain management treatment. Also wanting disability. Talkative. Likes to engage with staff. Writing in journal and working on coping skills. Wants to go home and take care of his cats. Mother supportive. Safety planning done. Mood looks stable. Client is denying SI. Joking. Bright affect. Looks good for discharge. - Time Spent with Patient Total time spent providing and/or coordinating discharge services: Assessment and Plan - Patient/Caregiver Discharge Instructions Activity: resume usual activities as tolerated Diet: regular diet - Follow up Plan Follow up with: [facility] [Outside] - 03/29/18 10:00 am (The above appointment is with Hoa, your case repairer. Please bring photo ID and insurance card.) Billy Fajardo [facility] [Outside] - 03/31/18 1:00 pm (The above appointment is with Gracie for outpatient substance abuse counseling services.) Manda Hollins [Advanced Practice Nurse] - 04/08/18 11:20 am (The above appointment is with Manda Hollins CNP, for medication management services.) Functional capacity at discharge: independent ambulation Overall status at discharge: Stable Disposition: Home, Self-Care Quality - Multiple Antipsychotics Patient discharged on 2 or more antipsychotic medications: No Procedures - Procedures Procedures: Medication Management, Crisis Stabilization, Supportive Therapy, Group Therapy
[2018-03-26 10:17] VITALS: BP 128/85
== END 2018-03-26 11:10 | disposition home or self-care (01) | DRG 751 ==
LOC: EMEROO 17:24 → 1ANU 22:14
PROVIDERS: ADMIT Psychiatry & Neurology Forensic Psychiatry; ATTEND Psychiatry & Neurology Forensic Psychiatry

== ENCOUNTER 2018-04-12 21:38 | Observation (INO) ==
[2018-04-12 22:27] LABS: Basophils % 0.4 %; Eosinophils # 0.3 K/mcL (0.0-0.6); Hematocrit 39.5 % (37.5-50.1); Hemoglobin 13.4 g/dL (12.9-16.9); Immature Granulocytes % 0.2 % (0-4); Lymphocytes # 2.3 K/mcL (0.6-4.6); Lymphocytes % 27.8 %; Mean Corpuscular HGB Conc 33.9 g/dL (31.6-35.5); Mean Corpuscular Hemoglobin 29.6 pg (28.0-33.3); Mean Corpuscular Volume 87.2 fL (83.0-100.0); Mean Platelet Volume 9.5 fL (9.4-12.4); Monocytes # 0.5 K/mcL (0.0-1.3); Monocytes % 5.9 %; Neutrophils # 5.1 K/mcL (1.6-8.9); Platelet Count 365 K/mcL (140-400); Red Blood Count 4.53 M/mcL (4.19-5.50); Red Cell Distribution Width 13.6 % (11.5-14.5); Segmented Neutrophils % 61.7 %
[2018-04-12 22:32] LABS: Prothrombin Time 10.9 Seconds (9.4-12.1)
[2018-04-12 22:34] LABS: Activated Partial Thrombo Time 32.4 Seconds (26.0-36.0)
[2018-04-12 22:47] LABS: BUN/Creatinine Ratio 10 (6-26); Blood Urea Nitrogen 10 mg/dL (6-20); Calcium 9.1 mg/dL (8.6-10.3); Carbon Dioxide 27 mEq/L (23-29); Chloride 103 mEq/L (98-107); Glucose 125 mg/dL (70-105); Osmolality,Calculated 287 (280-300); Potassium 3.5 mEq/L (3.5-5.1); Sodium 138 mEq/L (136-145); Troponin I < 0.03 ng/mL (< 0.04); eGFR For Non-African Americans > 60 (> 60)
[2018-04-12] MEDS ORDERED: Isovue-370 500 ML INFUS..BTL IV ONE (23:59)
[2018-04-13] MEDS ORDERED: 0.9 % Sodium Chloride 1,000 ML IVC ONE (04:55)
[2018-04-13] MEDS ORDERED: *HR* OxyCODONE Immed Rel 5 MG TABLET PO STA (04:55)
--- NOTE | 2018-04-13 05:09 | Emergency Department Note ---
Disposition Clinical Impression: Carotid aneurysm, right, Vertigo Syncope Qualifiers: Syncope type: unspecified Qualified Code(s): R55 - Syncope and collapse Disposition: Admitted As Inpatient Condition: Good Referrals: Manda Hollins [Primary Care Provider] - Forms: ED Satisfaction Letter Syncope HPI - General Chief Complaint: ED Syncope Stated Complaint: Syncope Time Seen by Provider: 04/12/18 22:03 Source: family Limitations: no limitations Nursing Notes Reviewed: Yes Vital Signs Reviewed: Yes - History of Present Illness HPI Narrative: Patient presents today for evaluation of syncope. Patient states that he got up from bed and the next thing he noticed that he was sitting on the ground in the bathroom. He is unsure about hitting his head. Patient does have a right- sided headache and complains of dizziness that is worse with movement. The patient on exam has a right-sided nystagmus. Worse with looking to the right as well as up. Patient states that when he fell he did land on his bottom and is complaining of worsening low back pain. - Related Data Home Medications Medication Instructions Recorded Confirmed Lansoprazole [Prevacid] 30 mg PO DAILY 05/27/17 03/23/18 Docusate Sodium [Dok] 100 mg PO DAILY 02/27/18 03/23/18 Previous Rx's Medication Instructions Recorded Gabapentin [Neurontin] 800 mg PO TID #120 capsule 03/09/18 Sennosides/Docusate Sodium [Senna 1 each PO BID #60 tablet 03/09/18 Plus] DULoxetine [Cymbalta] 30 mg PO DAILY #14 capsule. 03/26/18 Allergies Allergy/AdvReac Type Severity Reaction Status Date / Time ciprofloxacin [From Cipro] Allergy Hives Verified 03/23/18 22:14 Penicillins [PCN] Allergy Nausea Verified 03/23/18 22:14 Review of Systems: CONSTITUTIONAL: No weight loss, fever, chills, weakness or fatigue. HEENT: Eyes: Nystagmus with looking to the right as well as up. SKIN: No rash or itching. CARDIOVASCULAR: No chest pain, chest pressure or chest discomfort. No palpitations or edema. RESPIRATORY: No shortness of breath, cough or sputum. GASTROINTESTINAL: No anorexia, nausea, vomiting or diarrhea. No abdominal pain or blood. GENITOURINARY: No burning on urination or hematuria. NEUROLOGICAL: Dizziness with associated headache. Syncopal event No paralysis, ataxia, numbness or tingling in the extremities. No change in bowel or bladder control. MUSCULOSKELETAL: Back and hip pain, acute on chronic. Past Medical History - Past Medical History Medical history: Reports: no medical history, arthritis, GERD Surgical history: Reports: non-contributory Psychiatric history: Reports: bipolar, depression, previous psychiatric hospitalization - Social History Smoking Status: Current every day smoker Smokeless Tobacco Status: No Alcohol use: Reports: rarely Drug use: Reports: cocaine, opiates, methamphetamine, IV Drug Use, prescription drug abuse Physical Exam General: Well appearing, nontoxic, no acute distress Head: Normocephalic Atraumatic Eyes: PERRL, EOMI ENT: Airway patent, no stridor Neck: supple, no meningismus Chest: Lungs clear to auscultation bilateral Cardiac: Regular rate and rhythm, no murmurs, rubs or gallops Abdomen: soft, nontender, nondistended; no guarding, rebound, or tenderness to percussion Musculoskeletal: Calves symmetric, nontender, no palpable cord Skin: No rash, normal skin tone Neuro: Alert and Oriented to person, place, and time; No focal deficit, on cranial nerve exam 2 through 12 patient's abnormalities include right-sided nystagmus as well as vertical nystagmus and decreased ability to visualize to the right peripheral field. Strength and sensation throughout the upper and lower extremities is intact. Finger to nose intact. - General Limitations: no limitations General appearance: alert, in no apparent distress Course - Reevaluation(s) Reevaluation #1: Patient has been reevaluated. Initial head CT is negative. He will undergo a CTA of the head and neck to further evaluate for possible aneurysm or carotid dissection. The patient has some lower back pain from landing on his bottom. He has chronic paresthesias to the left leg. States slightly worse than usual. Patient does not have any paresthesias to the groin. He does not have any midline tenderness. Patient has muscle spasm on the left. Do believe his pain is muscular in nature. - Consultations Consultation #1: Discussed abnormal CTA of the neck with vascular surgery. They state that this is an interesting but not likely explanatory finding of patient's nystagmus or dizziness or syncopal event. They recommend follow-up imaging in 2-3 years but no other specific recommendations. Consultation #2: Discussed with hospitalist. Patient accepted for admission. Patient's vertigo symptoms does not explain syncope. Patient will undergo further evaluation. I have given the patient meclizine to treat his vertigo type symptoms Vital Signs Pulse Rate 57 04/12/18 21:44 Respiratory Rate 20 04/12/18 21:44 Blood Pressure 122/94 04/12/18 21:44 O2 Sat by Pulse Oximetry 100 04/12/18 21:44 Temperature 98.7 F 04/12/18 22:59 Pulse Rate 71 04/12/18 23:09 Respiratory Rate 12 04/12/18 23:09 Blood Pressure 121/81 04/12/18 23:09 O2 Sat by Pulse Oximetry 98 04/12/18 23:09 Oxygen Delivery Oxygen Delivery Room Air Syncope - Medical Records Medical records reviewed: Yes I reviewed the patient's medical records. - Lab Data Lab results reviewed: Yes I reviewed the patient's lab results. Result diagrams: 04/12/18 22:15 04/12/18 22:15 Lab Results 04/12/18 04/12/18 04/12/18 Range/Units 22:15 22:15 22:15 WBC 8.2 (4.3-11.1) K/mcL RBC 4.53 (4.19-5.50) M/mcL Hgb 13.4 (12.9-16.9) g/dL Hct 39.5 (37.5-50.1) % MCV 87.2 (83.0-100.0) fL MCH 29.6 (28.0-33.3) pg MCHC 33.9 (31.6-35.5) g/dL RDW 13.6 (11.5-14.5) % Plt Count 365 (140-400) K/mcL MPV 9.5 (9.4-12.4) fL Immature Gran % 0.2 (0-4) % Seg Neutrophils % 61.7 % Lymphocytes % 27.8 % Monocytes % 5.9 % Eosinophils % 4.0 % Basophils % 0.4 % Neutrophils # 5.1 (1.6-8.9) K/mcL Lymphocytes # 2.3 (0.6-4.6) K/mcL Monocytes # 0.5 (0.0-1.3) K/mcL Eosinophils # 0.3 (0.0-0.6) K/mcL Basophils # 0.0 (0.0-0.2) K/mcL PT 10.9 (9.4-12.1) Seconds INR 1.0 APTT 32.4 (26.0-36.0) Seconds Sodium 138 (136-145) mEq/L Potassium 3.5 (3.5-5.1) mEq/L Chloride 103 (98-107) mEq/L Carbon Dioxide 27 (23-29) mEq/L BUN 10 (6-20) mg/dL Creatinine 1.00 (0.70-1.30) mg/dL Est GFR ( Amer) > 60 (> 60) Est GFR (Non-Af Amer) > 60 (> 60) BUN/Creatinine Ratio 10 (6-26) Glucose 125 H (70-105) mg/dL Calculated Osmolality 287 (280-300) Calcium 9.1 (8.6-10.3) mg/dL Troponin I < 0.03 (< 0.04) ng/mL - Radiology Data Radiology results reviewed: Yes I reviewed the patient's radiology results. - EKG Data EKG attestation: Yes I reviewed and interpreted this EKG. EKG results narrative: Sinus rhythm with a ventricular rate of 73. KS interval 152. QRS 84. QTC 395. No significant ST elevations or depressions.
[2018-04-13] MEDS ORDERED: Naloxone 0.4 MG/ML INJ IVP PRN (08:22)
--- NOTE | 2018-04-13 08:50 | Internal Med History&Physical ---
<Rupali Qiu - Last Filed: 04/13/18 09:00> Date of Encounter: 04/13/18 Time of Encounter: 08:46 Internal Medicine - H&P: HPI Chief complaint: i passed out Admitted From: Home History of present illness: Mr. Alvarez is a 52 year old male with PMH anxiety/depression, neuropathy and GERD presented to [facility] on 04/12/2018 after 2 syncopal events with loss of consciousness. He is placed in observation status for further workup and treatment. Information obtained from chart review and patient report. Patient reported 2 syncopal episodes that occurred on 2017 approximately 1 hour prior to arrival. The first episode occurred as he went to go to the bathroom. Says he walked into the bathroom and the next thing he knows he is waking up on the floor. Unsure if he hit head. Event was not witnessed. Second episode occurred approximately 10 minutes later; patient report he walked into the living room and became lightheaded and dizzy and fell to the floor. He did not lose consciousness on second episode. Denied biting tongue. No loss of bowel or bladder continence. Patient reported history for previous concussions and feel symptoms are consistent with concussion. He has some left chest wall tenderness which he thinks is secondary to first fall. Denied palpitations Past Med Surg Social Fam HX - Past Medical History Medical history: no medical history, arthritis, GERD Additional medical history: Hep C, DDD, osteoarthritis, hx of closed head injuries Psychiatric history: bipolar, depression, previous psychiatric hospitalization - Past Surgical History Surgical History: non-contributory Additional surgical history: Surg on R ankle, R shoulder surg., R thumb surg., Fissurerectomy - Social History Smoking Status: Current every day smoker Smokeless Tobacco Status: No Alcohol use: rarely Drug use: cocaine, opiates, methamphetamine, IV Drug Use, prescription drug abuse - Family History Father Adopted: No Family Member Ethnicity: Non- Living Status: Still Living Hx Family Cardiac Disorders: Yes (Heart arrythmias) Hx Family Cancer: Yes (Bladder cancer) Internal Medicine - H&P: Meds Lansoprazole [Prevacid] 30 mg PO DAILY 05/27/17 [History] Docusate Sodium [Dok] 100 mg PO DAILY 02/27/18 [History] Gabapentin [Neurontin] 800 mg PO TID #120 capsule 03/09/18 [Rx] Sennosides/Docusate Sodium [Senna Plus] 1 each PO BID #60 tablet 03/09/18 [Rx] Cyclobenzaprine [Flexeril] 10 mg PO DAILY 04/13/18 [History] Quetiapine Fumarate [Seroquel] 300 mg PO DAILY 04/13/18 [History] Venlafaxine HCl [Venlafaxine HCl ER] 75 mg PO TID 04/13/18 [History] clonazePAM [Klonopin] 1 mg PO TID 04/13/18 [History] 3 Allergy/AdvReac Type Severity Reaction Status Date / Time ciprofloxacin [From Cipro] Allergy Hives Verified 04/13/18 07:15 Penicillins [PCN] Allergy Nausea Verified 04/13/18 07:15 All Systems PM: A 10-system review of systems was performed and is negative for pertinent findings except as documented above in the HPI. - Constitutional Constitutional: no chills, no fever(s), no night sweats - EENT Eyes: no change in vision, no discharge, no pain, no photophobia Ears: no ear discharge, no ear pain, no tinnitus Nose, mouth and throat: no dysphagia, no nasal discharge, no neck pain, no sore throat - Cardiovascular Cardiovascular ROS IM: no chest pain, no diaphoresis, no dyspnea, no lightheadedness, no palpitations, no syncope - Respiratory Respiratory: no cough, no dyspnea, no wheezing, no excessive phlegm production - Gastrointestinal Gastrointestinal: no abdominal pain, no diarrhea, no hematemesis, no hematochezia, no melena, no nausea, no vomiting - Musculoskeletal Musculoskeletal ROS IM: other (Left chest wall tenderness), no numbness, no tingling - Integumentary Integumentary IM: no rash, no unusual bruising - Neurological Neurological ROS: no confusion, no convulsions, no focal weakness, no numbness, no tingling, no tremor(s) - Hematologic/Lymphatic Hematologic/Lymphatic: no easy bruising - Constitutional Vitals: Temp Pulse Resp BP Pulse Ox 97.8 F 56 16 141/93 94 04/13/18 08:10 04/13/18 08:10 04/13/18 08:10 04/13/18 08:10 04/13/18 08:10 General appearance: Present: A&O X 3, pleasant, no acute distress Exam: See exam below - Head Head exam: Present: atraumatic, normocephalic - Eye Eye exam: Present: PERRL, conjuntiva pink, sclera anicteric Pupils: Present: PERRL - Neck Neck exam general surgery: Present: supple, trachea midline. Absent: lymphadenopathy - Respiratory Respiratory exam: Present: chest wall tenderness, CTAB. Absent: accessory muscle use, rales, rhonchi, wheezes - Cardiovascular Cardiovascular exam: Present: RRR, +S1, +S2. Absent: diastolic murmur, gallop, rubs, systolic murmur - GI/Abdominal GI/Abdominal exam: Present: normal bowel sounds, soft, no peritoneal signs. Absent: distended, tenderness - Extremities Exam Extremities exam: Present: warm, radial pulses palpable and symmetrical. Absent : calf tenderness, cyanotic, pedal edema - Neurological Exam Neurological exam: Present: CN II-XII intact, oriented X3, no focal deficits. Absent: pronater drift, facial droop, speech deficit - Skin Skin exam: Present: dry, intact Internal Med - H&P Results - Labs CBC & Chem 7: 04/12/18 22:15 04/12/18 22:15 - Impressions ITS Impressions Head CTA 04/13/18 23:59 IMPRESSION: Right supraclinoid internal carotid artery 1 mm aneurysm versus infundibulum. Catheter directed angiography may be of benefit to confirm suspected presence of infundibulum or clearly define the aneurysm. Otherwise, no acute abnormality of the intracranial and extracranial arterial circulation. D/ / Hakan Willis / Hakan Willis Interpreting Provider: Hakan Willis Neck CTA 04/13/18 23:59 IMPRESSION: Right supraclinoid internal carotid artery 1 mm aneurysm versus infundibulum. Catheter directed angiography may be of benefit to confirm suspected presence of infundibulum or clearly define the aneurysm. Otherwise, no acute abnormality of the intracranial and extracranial arterial circulation. D/ / Hakan Willis / Hakan Willis Interpreting Provider: Hakan Willis - Assessment and plan (1) Syncope Current Visit: Yes Status: Acute Assessment and plan: presented after 2 syncopal episodes with loss of consciousness. No evidence of tongue biting, denied bowel/bladder continence. Head/neck CTA with possible R ICA aneurysm. Vascular surgery contacted per ED and per ED notes aneurysm unlikely to be cause of syncope. Etiology unknown at this time; possibly secondary to orthostatic hypotension and/or polypharmacy as he is on multiple psychiatric/sedating medications. Check orthostatic BPs, echocardiogram. Qualifiers: Syncope type: unspecified Qualified Code(s): R55 - Syncope and collapse (2) Carotid aneurysm, right Current Visit: Yes Status: Acute Assessment and plan: Head/neck CTA showed right supraclinoid internal carotid artery 1 mm aneurysm versus infundibulum. Plan as noted as above. (3) Major depression, recurrent Current Visit: No Status: Acute Assessment and plan: per hx with anxiety. Cautiously continue home medication per patient request however his medication regimen could be contributing to above syncopal events. Qualifiers: Active/Remission status: currently active Major depression episode severity : severe Psychotic features: without psychotic features Qualified Code(s): F33.2 - Major depressive disorder, recurrent severe without psychotic features (4) GERD (gastroesophageal reflux disease) Current Visit: Yes Status: Acute Assessment and plan: per hx. Cont home medications. Qualifiers: Esophagitis presence: without esophagitis Qualified Code(s): K21.9 - Gastro -esophageal reflux disease without esophagitis (5) DVT prophylaxis Current Visit: Yes Status: Acute Assessment and plan: lovenox - Time Spent With Patient Total time spent is greater than 50% in coordination of care (as documented) at patient's floor/unit and/or counseling patient: <MargiebeckySrsong - Last Filed: 04/13/18 09:29> Date of Encounter: 04/13/18 Internal Medicine - H&P: HPI History of present illness: Mr. Alvarez is a 52 year old male All Systems PM: A 10-system review of systems was performed and is negative for pertinent findings except as documented above in the HPI. - Constitutional Vitals: Temp Pulse Resp BP Pulse Ox 97.8 F 56 16 141/93 94 04/13/18 08:10 04/13/18 08:10 04/13/18 08:10 08/22/18 08:10 04/13/18 08:10 Internal Med - H&P Results - Labs CBC & Chem 7: 04/12/18 22:15 04/12/18 22:15 - Impressions ITS Impressions Head CTA 04/13/18 23:59 IMPRESSION: Right supraclinoid internal carotid artery 1 mm aneurysm versus infundibulum. Catheter directed angiography may be of benefit to confirm suspected presence of infundibulum or clearly define the aneurysm. Otherwise, no acute abnormality of the intracranial and extracranial arterial circulation. D/ / Hakan Willis / Hakan Willis Interpreting Provider: Hakan Willis Neck CTA 04/13/18 23:59 IMPRESSION: Right supraclinoid internal carotid artery 1 mm aneurysm versus infundibulum. Catheter directed angiography may be of benefit to confirm suspected presence of infundibulum or clearly define the aneurysm. Otherwise, no acute abnormality of the intracranial and extracranial arterial circulation. D/ / Hakan Willis / Hakan Willis Interpreting Provider: Hakan Willis - Assessment and plan (1) Major depression, recurrent Current Visit: No Status: Acute Qualifiers: Active/Remission status: currently active Major depression episode severity : severe Psychotic features: without psychotic features Qualified Code(s): F33.2 - Major depressive disorder, recurrent severe without psychotic features (2) Syncope Current Visit: Yes Status: Acute Qualifiers: Syncope type: unspecified Qualified Code(s): R55 - Syncope and collapse (3) Carotid aneurysm, right Current Visit: Yes Status: Acute (4) GERD (gastroesophageal reflux disease) Current Visit: Yes Status: Acute Qualifiers: Esophagitis presence: without esophagitis Qualified Code(s): K21.9 - Gastro -esophageal reflux disease without esophagitis (5) DVT prophylaxis Current Visit: Yes Status: Acute - Time Spent With Patient Total time spent is greater than 50% in coordination of care (as documented) at patient's floor/unit and/or counseling patient: - Attending Attestation I discussed plan of care and reviewed medical decision-making with the Nurse Practitioner. I agree with the documented findings, disposition and treatment plan as described except to any changes set forth below.
[2018-04-13] MEDS: Gabapentin 400 MG CAPSULE PO SCH ×3 (09:29→19:49)
[2018-04-13] MEDS: Venlafaxine XR (24 HR) 75 MG CAP.ER.24H PO SCH ×3 (09:29→19:49)
[2018-04-13] MEDS: clonazePAM 1 MG TABLET PO SCH ×3 (09:30→19:49)
[2018-04-13] MEDS: Acetaminophen 325 MG TABLET PO PRN ×2 (11:28→19:49)
[2018-04-13] MEDS ORDERED: *HR* OxyCODONE Immed Rel 5 MG TABLET PO ONE (15:08)
--- NOTE | 2018-04-13 17:25 | Electrocardiograph Report ---
[place] [facility] Test Date: 2018-04-12 Pat Name: Andrade Alvarez Department: Room: [facility] Gender: M Spanish Tutor: : 1965 Requested By: [id number] Order Number: [id number] Reading MD: Rusty Prescott Measurements Intervals [place] Rate: 73 P: 58 MO: 152 QRS: 39 QRSD: 84 T: 54 QT: 358 QTc: 395 Interpretive Statements Sinus rhythm Low voltage, precordial leads Electronically Signed On 04-13-2018 17:23:52 EDT by Rusty Prescott
[2018-04-14 01:45] LABS: Hematocrit 38.1 % (37.5-50.1); Hemoglobin 12.4 g/dL (12.9-16.9); Immature Platelets 3.3 % (1.1-6.1); Mean Corpuscular HGB Conc 32.5 g/dL (31.6-35.5); Mean Corpuscular Hemoglobin 28.6 pg (28.0-33.3); Mean Corpuscular Volume 87.8 fL (83.0-100.0); Mean Platelet Volume 9.5 fL (9.4-12.4); Red Blood Count 4.34 M/mcL (4.19-5.50); Red Cell Distribution Width 13.7 % (11.5-14.5)
[2018-04-14 02:01] LABS: BUN/Creatinine Ratio 12 (6-26); Blood Urea Nitrogen 11 mg/dL (6-20); Calcium 8.7 mg/dL (8.6-10.3); Carbon Dioxide 28 mEq/L (23-29); Chloride 105 mEq/L (98-107); Glucose 135 mg/dL (70-105); Osmolality,Calculated 285 (280-300); Potassium 4.3 mEq/L (3.5-5.1); Sodium 137 mEq/L (136-145); eGFR For Non-African Americans > 60 (> 60)
[2018-04-14] MEDS ORDERED: *HR* Enoxaparin 40 MG/0.4 ML SYRINGE SQ SCH (06:00)
[2018-04-14 07:43] VITALS: BP 156/95
[2018-04-14] MEDS: Venlafaxine XR (24 HR) 75 MG CAP.ER.24H PO SCH (09:42)
[2018-04-14] MEDS: Gabapentin 400 MG CAPSULE PO SCH (09:42)
[2018-04-14] MEDS: clonazePAM 1 MG TABLET PO SCH (09:42)
--- NOTE | 2018-04-14 10:57 | Discharge Summary ---
- NOTES TO OUTPATIENT PROVIDER Notes to Outpatient Provider: Recommend medication review as patient had syncopal/near syncopal episode after recently starting Seroquel. Patient also requesting neurosurgery referral for chronic back pain. Head/neck CT showed possible 1 mm right ICA aneurysm; vascular surgery was consult and in ED and recommended 2-3 year follow-up please follow-up with further imaging Date of Encounter: 04/14/18 Time of Encounter: 10:55 - Discharge Diagnosis (1) Syncope Priority: Primary Status: Acute Qualifiers: Syncope type: unspecified Qualified Code(s): R55 - Syncope and collapse (2) Carotid aneurysm, right Priority: Primary Status: Acute (3) Major depression, recurrent Priority: Primary Status: Acute Qualifiers: Active/Remission status: currently active Major depression episode severity : severe Psychotic features: without psychotic features Qualified Code(s): F33.2 - Major depressive disorder, recurrent severe without psychotic features (4) GERD (gastroesophageal reflux disease) Priority: Secondary Status: Chronic Qualifiers: Esophagitis presence: without esophagitis Qualified Code(s): K21.9 - Gastro -esophageal reflux disease without esophagitis Hospital course: Mr. Alvarez is a 52 year old male with PMH anxiety/depression, neuropathy and GERD presented to [facility] on 04/12/2018 after 2 syncopal events with loss of consciousness. He was placed in observation status for further workup and treatment. His hospital course included head/neck CTA that was overall nonacute but did show a possible right ICA 1 mm aneurysm. Per ED notes, vascular surgery was consult and who did not feel symptoms were related to the aneurysm and recommended a 2-3 year follow-up. Patient had an echocardiogram which showed preserved EF, no valvular dysfunction and no wall motion abnormalities. Vital signs were not indicative of orthostatic hypotension. He had no syncope/presyncope recurrence while hospitalized. Head/C -spine CT nonacute. Syncopal/pre-syncopal episode possibly occasional related. Patient recently started on Seroquel per psychiatry. Patient returned to baseline on day of discharge and requested to be sent home with outpatient follow-up. Advised to return to ER if symptoms recur. Also advised patient to follow-up with PCP or whoever prescribes psychiatry medication for medication review. Of note patient has chronic back pain for last 15 years with radiculopathy and requested oxycodone at discharge. I offered tramadol, Lidoderm patch and baclofen and patient declined stating these have not worked for him in the past. Discharge discussed with: patient (Seen and examined at bedside patient says he is back to baseline would like to go home today. Complaining of chronic lower back pain and requesting pain medicine at discharge. I offered nonopiate/ noncontrolled agents and patient declined. Says he would follow-up with his primary care doctor for neurosurgery referral.) - Time Spent with Patient Total time spent providing and/or coordinating discharge services: - Discharge Medications Home Medications: Lansoprazole [Prevacid] 30 mg PO DAILY 05/27/17 [History] Docusate Sodium [Dok] 100 mg PO DAILY 02/27/18 [History] Gabapentin [Neurontin] 800 mg PO TID #120 capsule 03/09/18 [Rx] Sennosides/Docusate Sodium [Senna Plus] 1 each PO BID #60 tablet 03/09/18 [Rx] Cyclobenzaprine [Flexeril] 10 mg PO DAILY 04/13/18 [History] Quetiapine Fumarate [Seroquel] 300 mg PO DAILY 04/13/18 [History] Venlafaxine HCl [Venlafaxine HCl ER] 75 mg PO TID 04/13/18 [History] clonazePAM [Klonopin] 1 mg PO TID 04/13/18 [History] Allergies/Adverse Reactions: 3 Allergy/AdvReac Type Severity Reaction Status Date / Time ciprofloxacin [From Cipro] Allergy Hives Verified 04/13/18 07:15 Penicillins [PCN] Allergy Nausea Verified 04/13/18 07:15 Date of admission: 04/13/18 06:23 Primary care physician: Manda Hollins Discharging clinician: Rupali Qiu Anticipated date of discharge: 04/14/18 - Constitutional Vitals: Temp Pulse Resp BP Pulse Ox 97.7 F 73 15 156/95 97 04/14/18 07:42 04/14/18 07:42 04/14/18 07:42 04/14/18 07:42 04/14/18 09:49 General appearance: Present: A&O X 3, pleasant, no acute distress Exam: see below - Head Head exam: Present: atraumatic, normocephalic - Eye Eye exam: Present: PERRL, conjuntiva pink, sclera anicteric Pupils: Present: PERRL - Neck Neck exam general surgery: Present: supple, trachea midline. Absent: lymphadenopathy - Respiratory Respiratory exam: Present: CTAB. Absent: accessory muscle use, rales, rhonchi, wheezes - Cardiovascular Cardiovascular exam: Present: RRR, +S1, +S2. Absent: diastolic murmur, gallop, rubs, systolic murmur - GI/Abdominal GI/Abdominal exam: Present: normal bowel sounds, soft, no peritoneal signs. Absent: distended, tenderness - Extremities Exam Extremities exam: Present: warm, radial pulses palpable and symmetrical. Absent : calf tenderness, cyanotic, pedal edema - Neurological Exam Neurological exam: Present: CN II-XII intact, oriented X3, no focal deficits. Absent: pronater drift, facial droop, speech deficit - Skin Skin exam: Present: dry, intact - Patient Status Disposition: Home, Self-Care Condition: Good Functional capacity at discharge: independent ambulation Overall status at discharge: patient is back to baseline - Discharge Instructions Instructions: Syncope (DC), Lumbar Radiculopathy (GEN) Follow Up With: Manda Hollins [Primary Care Provider] - 05/09/18 8:20 am () - Diet and Activity Activity: increase activity as tolerated Diet: advance to your usual diet
== END 2018-04-14 12:51 | disposition home or self-care (01) ==
LOC: 3NENU 21:38 → EMEROOARM 21:38 → 3NENU 04-13 08:06
PROVIDERS: ADMIT Pediatrics; ATTEND Pediatrics